=== PATIENT | female | born 1985 | race Caucasian/White ===

== ENCOUNTER 2018-11-14 07:22 | Day surgery (SDC) | payer OTHER ==
[~2018-11-14] VITALS: Ht 165.1 cm; Wt 95.3 kg
[~2018-11-14 07:22] MED LIST: CETACAINE SPRAY 5GM As Ordered ONE; EPINEPHrine 1MG/ML INJ 30ML MD-VIAL As Ordered ONE; IBUP200C25 PO; RANI150T PO
[2018-11-14] MEDS ORDERED: PROPOFOL 200 MG/20 ML VIAL As Ordered ONE (08:36)
[2018-11-14] MEDS ORDERED: LIDOCAINE 2% INJ 100 MG/5 ML SDV (FOR ANES.) As Ordered ONE (08:36)
[2018-11-14] MEDS ORDERED: MIDAZOLAM INJ 2 MG/2 ML VIAL (J2250) As Ordered ONE ×2 (08:36→09:50)
[2018-11-14] MEDS ORDERED: fentaNYL 100 MCG/2 ML INJECTION (J3010) As Ordered ONE ×2 (08:36→09:15)
[2018-11-14] MEDS ORDERED: ONDANSETRON 4MG/2ML VIAL (J2405) As Ordered ONE (08:36)
[2018-11-14] MEDS ORDERED: dexameTHASONE 4 MG/ML 1ML VIAL (J1100) As Ordered ONE ×2 (08:36→10:57)
[2018-11-14] MEDS ORDERED: ROCURONIUM BROMIDE 50 MG/5 ML VIAL As Ordered ONE (08:37)
[2018-11-14] MEDS ORDERED: SUGAMMADEX SODIUM 500 MG/5 ML VIAL (BRIDION) As Ordered ONE (09:25)
[2018-11-14] MEDS: fentaNYL 100 MCG/2 ML INJECTION (J3010) IV PRN ×4 (10:09→10:30)
[2018-11-14] MEDS ORDERED: ONDANSETRON 4MG/2ML VIAL (J2405) IV PRN (10:15)
[2018-11-14] MEDS ORDERED: LR 1,000 ML IV SCH (10:15)
[2018-11-14] MEDS ORDERED: PERCOCET 5MG/325MG TAB PO PRN (10:15)
[2018-11-14] MEDS ORDERED: HYDROcodone/APAP LIQUID 7.5-325MG 15ML UDC (LORTAB ELIXIR) PO PRN (10:15)
[2018-11-14] MEDS ORDERED: RACEPINEPHrine 2.25 % UD INHA As Ordered ONE (10:58)
[2018-11-14] MEDS ORDERED: dexameTHASONE 4 MG/ML 1ML VIAL (J1100) IV ONE (11:15)
[2018-11-14] MEDS ORDERED: RACEPINEPHrine 2.25 % UD INHA INH ONE (11:30)
[2018-11-14 11:45] VITALS: BP 155/77
--- NOTE | 2018-11-14 20:56 | RO ---
DATE OF PROCEDURE: 11/14/2018 PREPROCEDURE DIAGNOSIS: Left vocal cord lesion. POSTPROCEDURE DIAGNOSIS: Left vocal cord lesion. PROCEDURE: Microdirect laryngoscopy with biopsy of lesion of the left posterior vocal cord. SURGEON: Dr. Dov Rainey STORE DETECTIVE: ANESTHESIA: INDICATIONS: This is a 33-year-old with a history of smoking, presents with a history of some hoarseness, sore throat, and some ear pain. Office examinations including flexible laryngoscopy suggested the presence of a granular looking mass in the posterior aspect of the left vocal cord near the vocal process. She has a history of reflux, and it was thought it might have been some granulation from chronic reflux. When it failed to resolve with medical management, she was brought to the operating room. DESCRIPTION OF PROCEDURE: Satisfactory general endotracheal anesthesia administered using a small 5-1/2 endotracheal tube. A double-lighted Dedo laryngoscope was inserted in the oropharynx. Complete inspection of the upper airway was performed. No other mucosal lesions were seen. Once complete inspection of the hypopharynx and piriform fossa was done, the scope was advanced in the glottic vestibule and then suspended with the Lewey apparatus. Microscope was brought into place. Inspection of the larynx was begun. There appeared to be a smooth white mass that occupied the posterior one-fifth of the vocal cord on the left. It seemed to be emerging from the laryngeal ventricle but covered the surface of the cord posteriorly as well. Several biopsies were taken using a micro biopsy forcep cup. It was quite a vascular lesion, and once the superficial layer was biopsied, it appeared to have a much more ominous appearance with some granular tissue and keratinaceous looking white fragments were removed. It was fairly vascular. Adrenaline pledgets were placed on top of the lesion after multiple biopsies were taken. A frozen section was also done. After placing adrenaline pledgets, the bleeding subsided, the throat was suctioned, the larynx was suctioned, and the Dedo laryngoscope was removed. Tooth protectant used. Inspection of teeth showed no injury to any of the dentition or gums. She generally tolerated the procedure well, was sent to recovery in satisfactory condition. She will be seen back in the office to discuss the results later in the week.
== END 2018-11-14 11:54 | disposition home or self-care (01) ==
LOC: M SDC 07:22
PROVIDERS: ATTEND Specialist
DX: C32.9 Malignant neoplasm of larynx, unspecified (principal); K21.9 Gastro-esophageal reflux disease without esophagitis; F17.210 Nicotine dependence, cigarettes, uncomplicated; Z79.899 Other long term (current) drug therapy
CPT/HCPCS: 31536; 88305; 88331; J1100; J2250; J2405; J3010

== ENCOUNTER → 2018-12-02 | Outpatient (CLI) | payer OTHER ==
[~2018-12-02] MED LIST changes: -CETACAINE SPRAY 5GM As Ordered ONE; -EPINEPHrine 1MG/ML INJ 30ML MD-VIAL As Ordered ONE; +PERC5TAB12 PO
--- NOTE | 2018-12-05 12:49 | RADONC ---
RADIATION ONCOLOGY CONSULTATION NOTE DATE: 12/02/2018 CHART NUMBER: [id number] DIAGNOSIS: Left vocal cord. STAGE: I, T1N0M0. ECOG PERFORMANCE STATUS: Zero. CONSULTATION NOTE: Ms. 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 HISTORY OF PRESENT ILLNESS: The patient was in her usual state of health but developed some hoarseness and a sore throat. She was seen by Dr. Sheppard, and on 11/14/2018 underwent microdirect laryngoscopic with biopsy of a lesion involving her left posterior vocal cord. Pathology revealed a well-differentiated invasive keratinizing squamous cell carcinoma. The patient has done well since his surgery is now presenting for consideration of definitive external beam radiation therapy. PAST MEDICAL HISTORY: The patient's past medical history is noncontributory. She has been in generally good health. ALLERGIES: The patient reports is allergic to IODINE. SOCIAL HISTORY: The patient smokes half-a-pack of cigarettes per day for the last 6 years. She drinks alcohol socially. FAMILY HISTORY: The patient's family history is positive for a paternal great aunt with thyroid cancer and a maternal grandmother with lung cancer. REVIEW OF SYSTEMS: The patient's review of systems is positive for she claims is significant throat pain. She reports headaches, decreased energy, occasional fevers and chills, shortness of breath, anorexia, weight loss, difficulty swallowing. She denies nausea, vomiting, chest pain, urinary or bowel difficulties, bone pain or neurological problems. PHYSICAL EXAMINATION: The patient is a well-developed, well-nourished white female, in no acute distress. HEENT: Exam is normocephalic, atraumatic. Extraocular movements are intact. Oral cavity examination reveals no evidence of lesions, nodularity or ulceration. Fiberoptic laryngoscopic evaluation was deferred. We will refer to the work of Dr. Rainey. Her lungs are clear to auscultation and percussion. Heart has regular rate and rhythm. Her abdomen is benign with no splenomegaly, masses or tenderness. ASSESSMENT: The patient is presenting to us today with what appears to be a stage I, T1N0M0, left true vocal cord lesion. Clearly the patient is a candidate for external beam radiation therapy and I have so informed her. I have discussed with the patient in detail the potential benefits as well as possible acute and chronic sequelae of external beam radiation therapy. We discussed logistics of treatment planning, simulation subsequent fractionated daily radiation treatments. I am scheduling the patient for simulation and initiation of treatment planning. The patient was complaining of vocal cord discomfort and was asking for narcotics. I do not believe we would be helping this young woman by initiating a protracted course of narcotics therapy for a small vocal cord lesion. I did let her know that she may develop more discomfort upon swallowing once therapy is initiated and we can readdress things at that time. To start her on several months of continuous narcotics for this I believe would be doing her a disfavor. Of note, the lesion measured only 4 mm on the surface of the posterior left vocal cord. cc: MD DEIDRA Giles
== END ==
LOC: M ONCR 08:50
PROVIDERS: ATTEND Radiology Radiation Oncology
DX: C32.9 Malignant neoplasm of larynx, unspecified (principal); R53.83 Other fatigue; R63.4 Abnormal weight loss; R63.0 Anorexia; R51 Headache; Z80.7 Family history of other malignant neoplasms of lymphoid, hematopoietic and related tissues; Z80.1 Family history of malignant neoplasm of trachea, bronchus and lung

== ENCOUNTER → 2019-01-10 | Outpatient (RCR) | payer OTHER ==
--- NOTE | 2018-12-19 11:31 | RADONC ---
RADIATION ONCOLOGY PROGRESS NOTE DATE OF SERVICE: 12/19/2018 CHART NUMBER: [id number]. PROGRESS NOTE: Ms. Whitney was taken to the linear accelerator today and underwent her first fraction of radiation to her larynx. She tolerated the fraction of radiation without difficulty. REVIEW OF SYSTEMS: The patient's review of systems continues to be positive for her discomfort, as well as some hoarseness but is otherwise noncontributory. She denies nausea, vomiting, fevers, chills, night sweats, diplopia, headaches, anxiety or depression, anorexia, weight loss, visual disturbances, chest pain, urinary or bowel difficulties, bone pain, or neurological problems. PHYSICAL EXAMINATION: The patient's skin clearly showed no evidence of radiation change present as this was her first fraction of treatment. Her physical exam otherwise remained unchanged. Ms. Whitney tolerated treatments without difficulty, and radiation will continue as scheduled.
--- NOTE | 2018-12-26 13:55 | RADONC ---
RADIATION ONCOLOGY PROGRESS NOTE DATE OF SERVICE: 12/26/2018 CHART NUMBER: [id number] Mrs. Whitney, with a diagnosis of stage T1N0M0 squamous cell carcinoma involving the left true vocal cord is currently receiving local regional radiotherapy. Her dose to date is 1125 cGy of an anticipated 6300 cGy. She is tolerating her radiotherapy reasonably well. REVIEW OF SYSTEMS: She specifically denies any nausea, vomiting, coughing, sputum production or hemoptysis. She does have dysphagia and odynophagia and the pain radiates back into her left-sided jaw area / preauricular area. She did have some increased FDG activity in the left neck, but a PET scan showed that most likely these nodes which did uptake FDG are most likely inflammatory. She is fatigued slightly. Her energy level is such that she can maintain many day-to-day activities, but she still gets tired at the end of the day. EXAMINATION FINDINGS: Skin within the irradiated volume shows no evidence of erythema. No palpable peripheral lymphadenopathy is appreciated. Examination of the oropharynx reveals no significant abnormalities. The remainder of the physical examination is unchanged. IMPRESSION: Tolerating therapy reasonably well with anticipated dysphagia and a minimal odynophagia. PLAN: Treatments to continue. MTDD
--- NOTE | 2019-01-04 13:54 | RADONC ---
RADIATION ONCOLOGY PROGRESS NOTE DATE: 01/03/2019 CHART #: [id number] Ms. Whitney is presently at a dose of 2475 cGy to her vocal cord and is tolerating treatments without significant difficulties. She continues to complain of pain. At this time, we could refer her to the pain clinic. I do not feel comfortable giving her more pain medication. In the meantime, on physical exam her skin is in good condition with no evidence of moist or dry desquamation. The remainder of physical exam remains unchanged. Radiation will continue as scheduled.
[~2019-01-10] MED LIST changes: +PERC10TA26 PO
--- NOTE | 2019-01-11 08:10 | RADONC ---
RADIATION ONCOLOGY PROGRESS NOTE DATE: 01/09/2019 CHART NUMBER: [id number] Ms. Whitney is presently at a dose of 3375 cGy to her larynx and is in tears and complaining of pain. I checked I-STOP, and the patient did get a 6-day supply of pain medication on 01/04/[address] Daniels. She he had been getting pain medication as well from multiple physicians in November. I had refused to give her pain medication considering her small laryngeal lesion when she came in for consultation. Now, however, she is getting radiation reaction, and I do believe she is in a great deal of discomfort. I have therefore sent in a prescription for Percocet, which should alleviate some of her discomfort. The remainder of the patient's review of systems is noncontributory. Her big and only complaint at this time is pain and pain upon swallowing. She also is concerned about the slight pinkening of her skin. PHYSICAL EXAMINATION: The patient's skin actually is in very good condition with just some slight erythema present. The remainder of her physical exam remains unchanged. Ms. Whtiney is tolerating her treatments with pain. I have given her prescription for pain medication. Radiation will continue as scheduled. She is also continuing with her Viscous Xylocaine as well.
== END ==
LOC: M ONCR 12-15 11:19
PROVIDERS: ATTEND Radiology Radiation Oncology
DX: C32.0 Malignant neoplasm of glottis (principal)

== ENCOUNTER 2019-01-30 10:58 | Outpatient (RCR) | payer OTHER ==
--- NOTE | 2019-01-16 12:50 | RADONC ---
RADIATION ONCOLOGY PROGRESS NOTE DATE: 01/16/2019 CHART NUMBER: [id number] PROGRESS NOTE: Ms. Whitney is presently at a dose of 4275 cGy to her vocal cord and is tolerating treatments quite well at this point with no complaints related to her radiation therapy. She is having no pain at this time but is taking her Percocet. She has no other complaints. REVIEW OF SYSTEMS: The patient's review of systems is noncontributory. Denies nausea, vomiting, fevers, chills, night sweats, diplopia, headaches, anxiety or depression, anorexia, weight loss, visual disturbances, chest pain, urinary or bowel difficulties, bone pain, or neurological problems. PHYSICAL EXAMINATION: The patient's skin is in excellent condition with no evidence of radiation change present. There is no moist or dry desquamation. The remainder of her physical exam remains unchanged. Ms. Whitney is tolerating treatments quite well and radiation will continue as scheduled.
--- NOTE | 2019-01-23 14:53 | RADONC ---
RADIATION ONCOLOGY PROGRESS NOTE DATE: 01/23/2019 CHART NUMBER: [id number] Mrs. Whitney, with a diagnosis of carcinoma of the left vocal cord stage I, is currently receiving local regional radiotherapy for definitive control. She is at a dose of 5175 cGy of an anticipated 6300 cGy. She complains of the anticipated odynophagia and dysphagia, but generally is tolerating radiotherapy fairly well. REVIEW OF SYSTEMS She denies any nausea, vomiting, coughing, sputum production or hemoptysis. She does complain of odynophagia secondary to the radiation and claims that she has lost a minimal amount of weight from this side effect. She has been on oxycodone and Tylenol, which causes her to have a significant amount of nausea and does not actually control of pain. She also has been taking ibuprofen, which seems to work the best for her. The remainder of the review of systems is noncontributory. EXAMINATION FINDINGS: The skin within the irradiated volume shows erythema without evidence of desquamation. Lymphatics: No palpable peripheral lymphadenopathy. The remainder of the physical examination is unchanged. IMPRESSION: The patient appears to be tolerating therapy reasonably well with the exception of an anticipated dysphagia. PLAN: She has enough pain medicine for her dysphagia, however, she has requested something for nausea control, and I have E-scripted a prescription for some ondansetron 8 mg three times a day oral dissolving tablets. PLAN: Treatments will continue. MTDD
[~2019-01-30 10:58] MED LIST changes: +ONDA8TAB8 PO
--- NOTE | 2019-01-30 12:31 | RADONC ---
RADIATION ONCOLOGY TREATMENT SUMMARY: DATE: 01/30/2019 CHART NUMBER: [id number] DIAGNOSIS: Left vocal cord STAGE: I, T1N0M0 ECOG PERFORMANCE STATUS: 0 Ms. Whitney is a 33-year-old white female with the diagnosis of a stage I, T1,N0M0 well-differentiated invasive keratinizing squamous cell carcinoma of left vocal cord who presented to us for consideration of definitive external beam radiation therapy. We treated the patient to her left vocal cord for a total dose of 6300 cGy delivered in 28 fractions of 225 cGy each over 42 elapsed days from 02/18/2019 through 01/30/2019. The patient's vocal cord was treated on the linear accelerator utilizing a 6 MV photon beam via 3D conformal technique with oblique gutierrez. Ms. Whitney tolerated her treatments quite well and was able complete therapy as prescribed without interruption. I have scheduled the patient to see me again in 1 month for further followup. She will also continue to be followed by her other physicians as well. Thank you for allowing us to participate in the care of this very pleasant woman. If I could be of any further assistance or provide you with any information, please feel free to contact me anytime. As always warm regards, cc: Dov Rainey MD
[2019-02-07] MEDS ORDERED: PERC10TA26 PO (11:13)
--- NOTE | 2019-02-07 12:37 | RADONC ---
RADIATION ONCOLOGY PROGRESS NOTE DATE: 02/07/2019 CHART NUMBER: [id number] Ms. Whitney called us today complaining of severe pain. She has run out of the Percocet prescription that she filled on 01/09/2019. I had a discussion with the patient and let her know that since she just finished radiation is continuing to have the side effects and pain from the treatments, I am willing to write her another prescription to get her through the acute inflammation and discomfort. I have therefore sent in a prescription for Percocet once again, and we have scheduled her to see us in followup in approximately 3 weeks from now. Following this, her pain control issues will be referred back to her primary care physician. I-STOP was checked.
[2019-02-09] MEDS ORDERED: ZYRTTAB8 PO (11:34)
[2019-02-09] MEDS ORDERED: ONDA8TAB8 PO (11:49)
[2019-02-09] MEDS ORDERED: PERC10TA26 PO (11:49)
[2019-02-09] MEDS ORDERED: ROLA1CHW PO (11:49)
[2019-02-09] MEDS ORDERED: IBUP200T45 PO (11:49)
== END 2019-02-10 ==
LOC: M ONCR 10:58
PROVIDERS: ATTEND Radiology Radiation Oncology
DX: C32.0 Malignant neoplasm of glottis (principal)

== ENCOUNTER 2019-02-09 11:18 | Inpatient (IN) | payer OTHER ==
[~2019-02-09] VITALS: Ht 165.1 cm; Wt 90.5 kg
[2019-02-09] MEDS ORDERED: dexameTHASONE 20 MG/5 ML VIAL (J1100) IV ONE (11:30)
[2019-02-09] MEDS ORDERED: ZYRTTAB8 PO (11:34)
[2019-02-09] MEDS ORDERED: LIDOCAINE 2% INJ 100 MG/5 ML SDV (FOR ANES.) ONE (11:41)
[2019-02-09] MEDS ORDERED: NS 1,000 ML IV SCH (11:45)
[2019-02-09 11:46] LABS: BASO % 0.1 % (0.0-1.0); EOS % 0.1 % (0.0-3.0); HEMATOCRIT 41.8 % (36.0-47.0); HEMOGLOBIN 13.2 g/dl (12.0-15.5); LYMPH # 0.3 10^3/uL (1.5-4.5); LYMPH % 2.1 % (24.0-44.0); MEAN CORPUSCULAR HEMOGLOBIN 27.4 pg (27.0-33.0); MEAN CORPUSCULAR HGB CONC 31.6 g/dl (32.0-36.5); MEAN CORPUSCULAR VOLUME 86.7 fl (80.0-96.0); MONO # 0.1 10^3/uL (0.0-0.8); MONO % 0.4 % (0.0-5.0); NEUTROPHILS # 13.1 10^3/uL (1.8-7.7); NEUTROPHILS % 96.9 % (36.0-66.0); PLATELET COUNT, AUTOMATED 394 10^3/uL (150-450); RED BLOOD COUNT 4.82 10^6/uL (4.00-5.40); WHITE BLOOD COUNT 13.6 10^3/uL (4.0-10.0)
[2019-02-09] MEDS ORDERED: IBUP200T45 PO (11:49)
[2019-02-09] MEDS ORDERED: ROLA1CHW PO (11:49)
[2019-02-09] MEDS ORDERED: ONDA8TAB8 PO (11:49)
[2019-02-09] MEDS ORDERED: LIDOCAINE W/EPINEPHRINE 1% 20ML VIAL As Ordered ONE ×2 (11:49→12:33)
[2019-02-09] MEDS ORDERED: PERC10TA26 PO (11:49)
[2019-02-09 11:58] LABS: INR 0.99; PROTHROMBIN TIME 13.2 SECONDS (12.1-14.4)
[2019-02-09] MEDS ORDERED: RACEPINEPHrine 2.25 % UD INHA As Ordered ONE (11:58)
[2019-02-09 12:13] LABS: ALBUMIN 4.1 GM/DL (3.2-5.2); ALT/SGPT 28 U/L (12-78); BILIRUBIN,TOTAL 0.4 MG/DL (0.2-1.0); BLOOD UREA NITROGEN 14 MG/DL (7-18); CALCIUM LEVEL 9.5 MG/DL (8.5-10.1); CARBON DIOXIDE LEVEL 27 MEQ/L (21-32); CHLORIDE LEVEL 105 MEQ/L (98-107); CREATININE FOR GFR 0.55 MG/DL (0.55-1.30); GLOMERULAR FILTRATION RATE > 60.0 (>60); GLUCOSE, FASTING 122 MG/DL (70-100); SODIUM LEVEL 139 MEQ/L (136-145); TOTAL PROTEIN 6.9 GM/DL (6.4-8.2)
[2019-02-09] MEDS ORDERED: ceFAZolin 2 GM/D5W 50 ML IV BAG (J0690 PER 500MG) As Ordered ONE (12:14)
[2019-02-09] MEDS ORDERED: KETAMINE HCL 200 MG/20 ML VIAL As Ordered ONE (12:15)
[2019-02-09] MEDS ORDERED: MIDAZOLAM INJ 2 MG/2 ML VIAL (J2250) As Ordered ONE ×2 (12:16→13:52)
[2019-02-09] MEDS ORDERED: fentaNYL 100 MCG/2 ML INJECTION (J3010) As Ordered ONE ×2 (12:16→13:00)
--- NOTE | 2019-02-09 14:06 | CR.PDOC ---
General Date of Consultation: February 09, 2019 Referring Provider: PATRICK HUGHES MD Consultation REASON FOR CONSULTATION/CHIEF COMPLAINT: management of medical issues HISTORY OF PRESENT ILLNESS: 33 yo female with history of laryngeal cancer s/p radiation therapy, admitted to ICU today for observation s/p tracheostomy. ALLERGIES: Please see below. HOME MEDICATIONS: Please see below. PAST MEDICAL HISTORY: 1. Laryngeal cancer REVIEW OF SYSTEMS: Negative except as per HPI. PHYSICAL EXAMINATION: VITAL SIGNS: Please see below. GENERAL APPEARANCE: NAD, lying comfortably in bed HEENT: NC/AT, EOMI, PERRL, trach in place, area is C/D/I RESPIRATORY: grossly CTA, some upper airway sounds CARDIOVASCULAR: +S1S2, RRR ABDOMEN: soft, NT, +BS EXTREMITIES: no edema LABORATORY DATA: Please see below. ASSESSMENT/PLAN: 33 yo female status post tracheostomy with PMHx laryngeal cancer s/p RT: #s/p tracheostomy - follow as per primary - ENT #laryngeal cancer - continue o/p follow up #DVT prophylaxis - as per primary team - could utilize mechanical prophylaxis Vital Signs/I&O Vital Signs Date Time Temp Pulse Resp B/P (MAP) Pulse Ox O2 Delivery O2 Flow Rate FiO2 02/09/19 12:10 93 20 157/65 (95) 96 60 02/09/19 12:01 Tent/Vu 10.0 02/09/19 11:19 96.0 Laboratory Data Labs 24H Laboratory Tests 2 02/09/19 11:32: Immature Granulocyte % (Auto) 0.4, White Blood Count 13.6H, Red Blood Count 4.82 , Hemoglobin 13.2, Hematocrit 41.8, Mean Corpuscular Volume 86.7, Mean Corpuscular Hemoglobin 27.4, Mean Corpuscular Hemoglobin Concent 31.6L, Red Cell Distribution Width 13.6, Platelet Count 394, Neutrophils (%) (Auto) 96.9H, Lymphocytes (%) (Auto) 2.1L, Monocytes (%) (Auto) 0.4, Eosinophils (%) (Auto) 0.1, Basophils (%) (Auto) 0.1, Neutrophils # (Auto) 13.1H, Lymphocytes # (Auto) 0.3L, Monocytes # (Auto) 0.1, Eosinophils # (Auto) 0.0, Basophils # (Auto) 0.0, Nucleated Red Blood Cells % (auto) 0.0, Prothrombin Time 13.2, Prothromb Time International Ratio 0.99, Anion Gap 7L, Glomerular Filtration Rate > 60.0, Blood Urea Nitrogen 14, Creatinine 0.55, Sodium Level 139, Potassium Level 4.0, Ch loride Level 105, Carbon Dioxide Level 27, Calcium Level 9.5, Aspartate Amino Transf (AST/SGOT) 13, Alanine Aminotransferase (ALT/SGPT) 28, Alkaline Phosphatase 85, Total Bilirubin 0.4, Total Protein 6.9, Albumin 4.1, Albumin/Globulin Ratio 1.46 CBC/BMP Laboratory Tests 02/09/19 11:32 Red Blood Count 4.82, Mean Corpuscular Volume 86.7, Mean Corpuscular Hemoglobin 27.4, Mean Corpuscular Hemoglobin Concent 31.6 L, Red Cell Distribution Width 13.6, Neutrophils (%) (Auto) 96.9 H, Lymphocytes (%) (Auto) 2.1 L, Monocytes (%) (Auto) 0.4, Eosinophils (%) (Auto) 0.1, Basophils (%) (Auto) 0.1, Neutrophils # (Auto) 13.1 H, Lymphocytes # (Auto) 0.3 L, Monocytes # (Auto) 0.1, Eosinophils # (Auto) 0.0, Basophils # (Auto) 0.0, Calcium Level 9.5, Aspartate Amino Transf (AST/SGOT) 13, Alanine Aminotransferase (ALT/SGPT) 28, Alkaline Phosphatase 85, Total Bilirubin 0.4, Total Protein 6.9, Albumin 4.1 Allergies Coded Allergies: iodine (Verified Allergy, Severe, Anaphylaxis, 12/16/18) shellfish derived (Verified Allergy, Severe, anaphlaxis, 02/09/19) Home Medications Scheduled Cetirizine HCl/Pseudoephedrine (Zyrtec-D Tablet) 1 Each Tab.er.12h, 1 TAB PO DAILY, (Reported) Scheduled PRN Calcium Carb/Magnesium Hydrox (Rolaids Chewable Tablet) 1 Each Tab.chew, 1 CHW PO for HEARTBURN, (Reported) Ibuprofen (Ibu-200) 200 Mg Tablet, 200 MG PO Q6H PRN for PAIN, (Reported) Ondansetron (Ondansetron Odt) 8 Mg Tab.rapdis, 8 MG PO TID PRN for NAUSEA OR VOMITING, (Reported) Oxycodone HCl/Acetaminophen (Percocet 10-325 mg Tablet) 1 Each Tablet, 1 TAB PO Q6H PRN for PAIN, (Reported) SADIE LOGAN MD February 09, 2019 14:06
[2019-02-09] MEDS ORDERED: fentaNYL 100 MCG/2 ML INJECTION (J3010) IV PRN (14:15)
[2019-02-09] MEDS ORDERED: MIDAZOLAM INJ 2 MG/2 ML VIAL (J2250) IV SCH (14:15)
[2019-02-09] MEDS ORDERED: LR 1,000 ML IV SCH (14:15)
[2019-02-09] MEDS ORDERED: ONDANSETRON 4MG/2ML VIAL (J2405) IV PRN (14:15)
[2019-02-09] MEDS ORDERED: HYDROMORPHONE HCL 0.5 MG/ 0.5 ML SYRINGE (J1170 PER 1) As Ordered ONE ×2 (14:28→15:35)
[2019-02-09] MEDS: HYDROMORPHONE HCL 0.5 MG/ 0.5 ML SYRINGE (J1170 PER 1) IV PRN ×2 (14:31→15:40)
[2019-02-09] MEDS ORDERED: MORPHINE 4 MG/ML 1ML VIAL/SYRINGE (J2270) IM PRN (14:45)
[2019-02-09] MEDS ORDERED: RACEPINEPHrine 2.25 % UD INHA INH ONE (14:45)
[2019-02-09 16:00] VITALS: BP 140/88
[2019-02-09] MEDS: MORPHINE 4 MG/ML 1ML VIAL/SYRINGE (J2270) IV PRN (16:50)
[2019-02-09 17:00] VITALS: BP 147/79
[2019-02-09 18:00] VITALS: BP 140/88; O2SAT 99
[2019-02-09] MEDS: HYDROcodone/APAP LIQUID 7.5-325MG 15ML UDC (LORTAB ELIXIR) PO PRN ×2 (18:09→22:04)
[2019-02-09 19:00] VITALS: O2SAT 98
[2019-02-09 20:00] VITALS: BP 143/83; O2SAT 98
[2019-02-09] MEDS: ceFAZolin SOD 1 GM in D5W MINI-BAG PLUS 50 ML IV SCH (20:51)
[2019-02-10] VITALS (18 sets, daily range): BP systolic 120–140; BP diastolic 58–78; O2SAT 89–99
[2019-02-10] MEDS: HYDROcodone/APAP LIQUID 7.5-325MG 15ML UDC (LORTAB ELIXIR) PO PRN ×5 (03:38→23:28)
[2019-02-10] MEDS: ceFAZolin SOD 1 GM in D5W MINI-BAG PLUS 50 ML IV SCH ×3 (05:55→20:00)
[2019-02-10 08:09] LABS: BASO % 0.1 % (0.0-1.0); HEMATOCRIT 41.5 % (36.0-47.0); HEMOGLOBIN 13.1 g/dl (12.0-15.5); LYMPH % 5.2 % (24.0-44.0); MEAN CORPUSCULAR HEMOGLOBIN 28.2 pg (27.0-33.0); MEAN CORPUSCULAR HGB CONC 31.6 g/dl (32.0-36.5); MEAN CORPUSCULAR VOLUME 89.2 fl (80.0-96.0); MONO # 1.4 10^3/uL (0.0-0.8); MONO % 6.9 % (0.0-5.0); NEUTROPHILS % 87.2 % (36.0-66.0); PLATELET COUNT, AUTOMATED 388 10^3/uL (150-450); RED BLOOD COUNT 4.65 10^6/uL (4.00-5.40); WHITE BLOOD COUNT 19.5 10^3/uL (4.0-10.0)
[2019-02-10 08:16] LABS: ALBUMIN 3.5 GM/DL (3.2-5.2); ALT/SGPT 22 U/L (12-78); BILIRUBIN,TOTAL 0.4 MG/DL (0.2-1.0); BLOOD UREA NITROGEN 13 MG/DL (7-18); CALCIUM LEVEL 9.7 MG/DL (8.5-10.1); CARBON DIOXIDE LEVEL 29 MEQ/L (21-32); CHLORIDE LEVEL 103 MEQ/L (98-107); CREATININE FOR GFR 0.66 MG/DL (0.55-1.30); GLOMERULAR FILTRATION RATE > 60.0 (>60); GLUCOSE, FASTING 96 MG/DL (70-100); POTASSIUM SERUM 4.2 MEQ/L (3.5-5.1); SODIUM LEVEL 138 MEQ/L (136-145); TOTAL PROTEIN 6.5 GM/DL (6.4-8.2)
--- NOTE | 2019-02-10 09:14 | IPNPDOC ---
Text Note Date of Service The patient was seen on 02/10/19. NOTE Subjective: patient seen and examined at bedside. No acute overnight events reported. Patient has no new medical complaints. Still notes some pain at her tracheostomy. Objective: VITAL SIGNS: Please see below. GENERAL APPEARANCE: NAD, lying comfortably in bed HEENT: NC/AT, EOMI, PERRL, trach in place, area is C/D/I RESPIRATORY: grossly CTA, some upper airway sounds CARDIOVASCULAR: +S1S2, RRR ABDOMEN: soft, NT, +BS EXTREMITIES: no edema LABORATORY DATA: Please see below. ASSESSMENT/PLAN: 33 yo female status post tracheostomy with PMHx laryngeal cancer s/p RT: #s/p tracheostomy - POD #1 - follow as per primary - ENT #laryngeal cancer - continue o/p follow up as directed #DVT prophylaxis - receiving mechanical prophylaxis VS,Fishbone, I+O VS, Fishbone, I+O Laboratory Tests 02/09/19 11:32 Red Blood Count 4.82, Mean Corpuscular Volume 86.7, Mean Corpuscular Hemoglobin 27.4, Mean Corpuscular Hemoglobin Concent 31.6 L, Red Cell Distribution Width 13.6, Neutrophils (%) (Auto) 96.9 H, Lymphocytes (%) (Auto) 2.1 L, Monocytes (%) (Auto) 0.4, Eosinophils (%) (Auto) 0.1, Basophils (%) (Auto) 0.1, Neutrophils # (Auto) 13.1 H, Lymphocytes # (Auto) 0.3 L, Monocytes # (Auto) 0.1, Eosinophils # (Auto) 0.0, Basophils # (Auto) 0.0, Calcium Level 9.5, Aspartate Amino Transf (AST/SGOT) 13, Alanine Aminotransferase (ALT/SGPT) 28, Alkaline Phosphatase 85, Total Bilirubin 0.4, Total Protein 6.9, Albumin 4.1 02/10/19 07:37 Red Blood Count 4.65, Mean Corpuscular Volume 89.2, Mean Corpuscular Hemoglobin 28.2, Mean Corpuscular Hemoglobin Concent 31.6 L, Red Cell Distribution Width 13.8, Neutrophils (%) (Auto) 87.2 H, Lymphocytes (%) (Auto) 5.2 L, Monocytes (%) (Auto) 6.9 H, Eosinophils (%) (Auto) 0.0, Basophils (%) (Auto) 0.1, Neutrophils # (Auto) 17.0 H, Lymphocytes # (Auto) 1.0 L, Monocytes # (Auto) 1.4 H, Eosinophils # (Auto) 0.0, Basophils # (Auto) 0.0, Calcium Level 9.7, Aspartate Amino Transf (AST/SGOT) 6 L, Alanine Aminotransferase (ALT/SGPT) 22, Alkaline Phosphatase 79, Total Bilirubin 0.4, Total Protein 6.5, Albumin 3.5 Vital Signs Date Time Temp Pulse Resp B/P (MAP) Pulse Ox O2 Delivery O2 Flow Rate FiO2 02/10/19 08:13 18 02/10/19 08:00 97.3 92 123/70 (87) 98 40 02/10/19 04:00 10.0 02/09/19 20:00 Trach Collar I&O- Last 24 Hours up to 6 AM 02/10/19 06:00 Intake Total 1370 ml Output Total 1150 ml Balance 220 ml SADIE LOGAN MD February 10, 2019 09:13
--- NOTE | 2019-02-10 09:46 | IPNPDOC ---
Text Note Date of Service The patient was seen on 02/10/19. NOTE POD 1 from Tracheotomy VSS She is breathing better. Usual messy wound issues with new trach. Cuff is deflated and will order Passi-Fili valve for speaking Can begin to switch to po abx, DC IV and ambulate today Home care instruction should begin Thanks to medical team for assistance VS,Fishbone, I+O VS, Fishbone, I+O Laboratory Tests 02/09/19 11:32 Red Blood Count 4.82, Mean Corpuscular Volume 86.7, Mean Corpuscular Hemoglobin 27.4, Mean Corpuscular Hemoglobin Concent 31.6 L, Red Cell Distribution Width 13.6, Neutrophils (%) (Auto) 96.9 H, Lymphocytes (%) (Auto) 2.1 L, Monocytes (%) (Auto) 0.4, Eosinophils (%) (Auto) 0.1, Basophils (%) (Auto) 0.1, Neutrophils # (Auto) 13.1 H, Lymphocytes # (Auto) 0.3 L, Monocytes # (Auto) 0.1, Eosinophils # (Auto) 0.0, Basophils # (Auto) 0.0, Calcium Level 9.5, Aspartate Amino Transf (AST/SGOT) 13, Alanine Aminotransferase (ALT/SGPT) 28, Alkaline Phosphatase 85, Total Bilirubin 0.4, Total Protein 6.9, Albumin 4.1 02/10/19 07:37 Red Blood Count 4.65, Mean Corpuscular Volume 89.2, Mean Corpuscular Hemoglobin 28.2, Mean Corpuscular Hemoglobin Concent 31.6 L, Red Cell Distribution Width 13.8, Neutrophils (%) (Auto) 87.2 H, Lymphocytes (%) (Auto) 5.2 L, Monocytes (%) (Auto) 6.9 H, Eosinophils (%) (Auto) 0.0, Basophils (%) (Auto) 0.1, Neutrophils # (Auto) 17.0 H, Lymphocytes # (Auto) 1.0 L, Monocytes # (Auto) 1.4 H, Eosinophils # (Auto) 0.0, Basophils # (Auto) 0.0, Calcium Level 9.7, Aspartate Amino Transf (AST/SGOT) 6 L, Alanine Aminotransferase (ALT/SGPT) 22, Alkaline Phosphatase 79, Total Bilirubin 0.4, Total Protein 6.5, Albumin 3.5 Vital Signs Date Time Temp Pulse Resp B/P (MAP) Pulse Ox O2 Delivery O2 Flow Rate FiO2 02/10/19 08:13 18 02/10/19 08:00 97.3 92 123/70 (87) 98 40 02/10/19 04:00 10.0 02/09/19 20:00 Trach Collar I&O- Last 24 Hours up to 6 AM 02/10/19 06:00 Intake Total 1370 ml Output Total 1150 ml Balance 220 ml PATRICK HUGHES MD February 10, 2019 09:46
[2019-02-10] MEDS: MORPHINE 4 MG/ML 1ML VIAL/SYRINGE (J2270) IV PRN ×2 (09:49→20:00)
[2019-02-10] MEDS ORDERED: SLF 3 ML SYR IV PRN (13:45)
[2019-02-10] MEDS: SLF 3 ML SYR IV SCH ×2 (14:17→22:03)
--- NOTE | 2019-02-10 16:39 | ECGEPIP ---
[facility] Test Date: 2019-02-10 Pat Name: TOMY RASHEED Department: Room: [place] [address] Gender: Female Junior Business Analyst: : 1985 Requested By: SADIE Silverman Order Number: [id number] Reading MD: Kendrick Hollis Measurements Intervals [place] Rate: 83 P: 23 GA: 152 QRS: 28 QRSD: 89 T: 23 QT: 378 QTc: 446 Interpretive Statements SINUS RHYTHM Within normal limits. No prior ECG available for comparison at the time of interpretation. Electronically Signed on 02-10-2019 16:39:03 EDT by Kendrick Hollis
[2019-02-10 17:29] LABS: CK-MB VALUE MASS < 1.0 NG/ML (<3.6); CPK CREATINE PHOSPHOKINASE 38 U/L (26-192); MB/CK RELATIVE INDEX 2.63 (< OR =4); TROPONIN I < 0.02 NG/ML (< 0.10)
[2019-02-10] MEDS: FAMOTIDINE IV BAG 20 MG in APPROPRIATE DILUENT 1 EA IV SCH (17:52)
[2019-02-11] VITALS (24 sets, daily range): BP systolic 114–133; BP diastolic 55–86; O2SAT 92–98
[2019-02-11] MEDS: MORPHINE 4 MG/ML 1ML VIAL/SYRINGE (J2270) IV PRN ×4 (01:16→22:05)
[2019-02-11] MEDS: HYDROcodone/APAP LIQUID 7.5-325MG 15ML UDC (LORTAB ELIXIR) PO PRN ×4 (03:22→19:27)
[2019-02-11 04:49] LABS: HEMATOCRIT 39.8 % (36.0-47.0); HEMOGLOBIN 12.4 g/dl (12.0-15.5); MEAN CORPUSCULAR HEMOGLOBIN 27.9 pg (27.0-33.0); MEAN CORPUSCULAR HGB CONC 31.2 g/dl (32.0-36.5); MEAN CORPUSCULAR VOLUME 89.6 fl (80.0-96.0); PLATELET COUNT, AUTOMATED 318 10^3/uL (150-450); RED BLOOD COUNT 4.44 10^6/uL (4.00-5.40); WHITE BLOOD COUNT 11.2 10^3/uL (4.0-10.0)
[2019-02-11] MEDS: ceFAZolin SOD 1 GM in D5W MINI-BAG PLUS 50 ML IV SCH ×3 (04:59→20:35)
[2019-02-11 05:10] LABS: BLOOD UREA NITROGEN 14 MG/DL (7-18); CALCIUM LEVEL 8.7 MG/DL (8.5-10.1); CARBON DIOXIDE LEVEL 29 MEQ/L (21-32); CHLORIDE LEVEL 105 MEQ/L (98-107); CREATININE FOR GFR 0.62 MG/DL (0.55-1.30); GLOMERULAR FILTRATION RATE > 60.0 (>60); GLUCOSE, FASTING 102 MG/DL (70-100); POTASSIUM SERUM 3.8 MEQ/L (3.5-5.1); SODIUM LEVEL 141 MEQ/L (136-145)
[2019-02-11] MEDS: SLF 3 ML SYR IV SCH ×3 (05:25→20:36)
[2019-02-11] MEDS: FAMOTIDINE IV BAG 20 MG in APPROPRIATE DILUENT 1 EA IV SCH ×2 (05:46→18:57)
[2019-02-11] MEDS ORDERED: SUCCINYLCHOLINE 100 MG/5 ML SYRINGE (J0330) As Ordered ONE (13:27)
[2019-02-11] MEDS ORDERED: ROCURONIUM BROMIDE 50 MG/5 ML VIAL As Ordered ONE (13:27)
[2019-02-11] MEDS ORDERED: LIDOCAINE 2% INJ 100 MG/5 ML SDV (FOR ANES.) As Ordered ONE (13:27)
[2019-02-11] MEDS ORDERED: ONDANSETRON 4MG/2ML VIAL (J2405) As Ordered ONE (13:27)
[2019-02-11] MEDS ORDERED: PROPOFOL 200 MG/20 ML VIAL As Ordered ONE (13:27)
[2019-02-12] VITALS (23 sets, daily range): BP systolic 115–138; BP diastolic 65–81; O2SAT 92–98
[2019-02-12] MEDS: HYDROcodone/APAP LIQUID 7.5-325MG 15ML UDC (LORTAB ELIXIR) PO PRN ×4 (02:33→21:26)
[2019-02-12] MEDS: ceFAZolin SOD 1 GM in D5W MINI-BAG PLUS 50 ML IV SCH ×3 (04:44→21:25)
[2019-02-12] MEDS: SLF 3 ML SYR IV SCH ×3 (04:45→21:25)
[2019-02-12] MEDS: FAMOTIDINE IV BAG 20 MG in APPROPRIATE DILUENT 1 EA IV SCH ×2 (05:40→17:11)
[2019-02-12] MEDS: MORPHINE 4 MG/ML 1ML VIAL/SYRINGE (J2270) IV PRN ×3 (05:41→18:41)
--- NOTE | 2019-02-12 08:51 | IPNPDOC ---
Text Note Date of Service The patient was seen on 02/12/19. NOTE Subjective: Patient seen and examined at bedside. No acute overnight events reported. Patient complains of continued pain at her trach site, and coughing. Secretions have improved, with minimal blood noted. Objective: VITAL SIGNS: Please see below. GENERAL APPEARANCE: NAD, lying comfortably in bed HEENT: NC/AT, EOMI, PERRL, trach in place, area is C/D/I RESPIRATORY: grossly CTA, some coarse upper airway sounds CARDIOVASCULAR: +S1S2, RRR ABDOMEN: soft, NT, +BS EXTREMITIES: no edema LABORATORY DATA: Please see below. ASSESSMENT/PLAN: 33 yo female status post tracheostomy with PMHx laryngeal cancer s/p RT: #s/p tracheostomy - POD #3 - follow as per primary - ENT - pain appears to be uncontrolled - to d/w ENT regarding pain control #leukocytosis - likely reactive - repeat CBC tomorrow - no gross signs/symptoms of infections #laryngeal cancer - continue o/p follow up as directed #DVT prophylaxis - receiving mechanical prophylaxis VS,Fishbone, I+O VS, Fishbone, I+O Vital Signs Date Time Temp Pulse Resp B/P (MAP) Pulse Ox O2 Delivery O2 Flow Rate FiO2 02/12/19 08:24 16 02/12/19 08:00 97.3 96 125/67 (86) 96 40.0 02/12/19 04:00 40 02/12/19 03:00 Trach Collar I&O- Last 24 Hours up to 6 AM 02/12/19 06:00 Intake Total 1600 ml Output Total 950 ml Balance 650 ml SADIE LOGAN MD Feb 12, 2019 08:51
--- NOTE | 2019-02-12 10:29 | IPN ---
DATE: 02/11/2019 Dr. Kohli covering physician - coverage note with the attending Dr. Dov Rainey. SUBJECTIVE: Patient last night had some pain in the chest area and a little bit of pain in her ear. She had a little bit of coughing as well. Medicine was called and did a 12-lead EKG, which was read as normal and no cardiac issues. The patient had been only on clear liquids and had not been eating much due to her previous radiation and her difficulty with breathing. She was allowed to start on mechanical soft diet. She was able to eat a little bit. She was also put on intravenous (IV) famotidine 20 mg IV every 12 hours, and she is feeling much better today. She has also been attempting to try and keep the head of the bed elevated. She feels most of her symptoms have resolved at this time. She does have tenderness still in the surgical incision site as well as the radiation site, which she had tenderness prior to the surgery. Otherwise she is feeling fairly good today. EXAMINATION Vital signs: Show temperature 97.6, respiration rate 18 on trach collar, 40% FiO2, cool mist with saturations 95-96%. The patient is resting comfortably in her progressive care bed in room 3230, bed one. There is mild sputum along the inferior aspect of the tracheotomy site. No significant cellulitis is present. No signs of infection. Trach site is secure at this time. IMPRESSION: Postoperative day #2 status post tracheotomy for laryngeal and subglottic edema secondary to radiation therapy, doing much better with her airway. She has had some mild dysphagia with the radiation changes. She is doing better also since she has been started on the famotidine, and at this point, she wishes to try a little bit more of the mechanical soft diet. We will leave this to her discretion. She does feel better with it as she notes. PLAN: She will need to start next week with trach care and getting things in order for the patient to go home sometime next week. Overall, the patient is doing well considering her previous situation. [facility]
[2019-02-12] MEDS ORDERED: LIDOCAINE 4% TOPICAL SOLN 50 ML BTL TOP PRN (11:30)
[2019-02-12] MEDS: LIDOCAINE VISCOUS 2% SOLN 15ML UDC SS PRN (14:49)
[2019-02-13] VITALS (25 sets, daily range): BP systolic 121–156; BP diastolic 63–86; O2SAT 91–97
[2019-02-13] MEDS: LIDOCAINE VISCOUS 2% SOLN 15ML UDC SS PRN ×2 (00:13→20:27)
[2019-02-13] MEDS: MORPHINE 4 MG/ML 1ML VIAL/SYRINGE (J2270) IV PRN ×2 (01:46→17:49)
[2019-02-13] MEDS: ceFAZolin SOD 1 GM in D5W MINI-BAG PLUS 50 ML IV SCH ×3 (05:14→20:27)
[2019-02-13 05:39] LABS: HEMOGLOBIN 12.8 g/dl (12.0-15.5); MEAN CORPUSCULAR HEMOGLOBIN 27.6 pg (27.0-33.0); MEAN CORPUSCULAR VOLUME 86.2 fl (80.0-96.0); PLATELET COUNT, AUTOMATED 354 10^3/uL (150-450); RED BLOOD COUNT 4.64 10^6/uL (4.00-5.40); WHITE BLOOD COUNT 7.4 10^3/uL (4.0-10.0)
[2019-02-13] MEDS: SLF 3 ML SYR IV SCH ×3 (06:02→22:53)
[2019-02-13 06:08] LABS: BLOOD UREA NITROGEN 12 MG/DL (7-18); CALCIUM LEVEL 8.6 MG/DL (8.5-10.1); CARBON DIOXIDE LEVEL 28 MEQ/L (21-32); CHLORIDE LEVEL 105 MEQ/L (98-107); CREATININE FOR GFR 0.47 MG/DL (0.55-1.30); GLOMERULAR FILTRATION RATE > 60.0 (>60); GLUCOSE, FASTING 101 MG/DL (70-100); POTASSIUM SERUM 3.8 MEQ/L (3.5-5.1); SODIUM LEVEL 140 MEQ/L (136-145)
[2019-02-13] MEDS: FAMOTIDINE IV BAG 20 MG in APPROPRIATE DILUENT 1 EA IV SCH ×2 (06:08→17:15)
[2019-02-13] MEDS: HYDROcodone/APAP LIQUID 7.5-325MG 15ML UDC (LORTAB ELIXIR) PO PRN ×4 (06:09→23:36)
--- NOTE | 2019-02-13 06:36 | IPN ---
DATE OF VISIT: 02/12/2019 SUBJECTIVE: The patient overall is doing somewhat better, still having some tenderness around the neck were she has received radiation. We did up her oral pain medicine yesterday. She still was having some discomfort but is able to tolerate clear liquids and has mechanical soft occasionally. Nurse reports some generalized pain but when I went into the room she was resting comfortably. OBJECTIVE: GENERAL: The patient is resting comfortably in no acute distress. VITAL SIGNS: Temperature 97.3, pulse oximetry is 93% on trache collar 40% FiO2, respiration rate to 16, blood pressure is 125/57. The patient's tracheotomy sutures are intact two on each side. There is no significant erythema present. There is no purulent discharge. There is mild mucoid discharge in the inferior aspect of the trache but no signs of acute infection. The patient's Js soft collar is slightly looser than I would care for. It was tightened and this was shown to the nurse and also told to the patient this is her lifeline and needs to be relatively snug but not overly snug. She understands. The rest of the neck exam was unremarkable. IMPRESSION: Postoperative day three status post tracheotomy. At this point would recommend adding viscous lidocaine for her pain in her mucosal area which is likely sore secondary to recent radiation therapy. No signs of infection or inflammation at the tracheotomy site at this time. She will continue with the current pain regimen as she appears to be resting comfortably when I have come into the room. She understands it will be tender secondary to the radiation changes. She understands Dr. Rainey will be back tomorrow and will resume her care. PLAN: Plan is to again add the viscous lidocaine on top of her oral pain medicine and her intravenous (IV) pain medicine. DEIDRA
--- NOTE | 2019-02-13 08:41 | IPNPDOC ---
Text Note Date of Service The patient was seen on 02/13/19. NOTE Subjective: Patient seen and examined at bedside. No acute overnight events reported. Patient complains of continued pain at her trach site. She states her secretions have increased, with no blood. Objective: VITAL SIGNS: Please see below. GENERAL APPEARANCE: NAD, lying comfortably in bed HEENT: NC/AT, EOMI, PERRL, trach in place, area is C/D/I RESPIRATORY: grossly CTA, some coarse upper airway sounds CARDIOVASCULAR: +S1S2, RRR ABDOMEN: soft, NT, +BS EXTREMITIES: no edema LABORATORY DATA: Please see below. ASSESSMENT/PLAN: 33 yo female status post tracheostomy with PMHx laryngeal cancer s/p RT: #s/p tracheostomy - POD #4 - follow as per primary - ENT - still complains of some pain - to d/w ENT regarding pain control #leukocytosis - resolved - likely reactive - no gross signs/symptoms of infections #laryngeal cancer s/p RT/trach - continue o/p follow up as directed #DVT prophylaxis - receiving mechanical prophylaxis VS,Fishbone, I+O VS, Fishbone, I+O Laboratory Tests 02/13/19 05:20 Red Blood Count 4.64, Mean Corpuscular Volume 86.2, Mean Corpuscular Hemoglobin 27.6, Mean Corpuscular Hemoglobin Concent 32.0, Red Cell Distribution Width 13.6, Calcium Level 8.6 Vital Signs Date Time Temp Pulse Resp B/P (MAP) Pulse Ox O2 Delivery O2 Flow Rate FiO2 02/13/19 06:09 16 02/13/19 06:00 93 Trach Collar 10.0 40 02/13/19 04:00 97.9 87 128/71 (90) I&O- Last 24 Hours up to 6 AM 02/13/19 06:00 Intake Total 1450 ml Output Total 500 ml Balance 950 ml SADIE LOGAN MD Feb 13, 2019 08:41
[2019-02-13] MEDS ORDERED: SENNA 8.6 MG TAB (SENOKOT) PO PRN (10:30)
[2019-02-13] MEDS: DOCUSATE SODIUM 100 MG CAP PO PRN (17:14)
[2019-02-14] VITALS (16 sets, daily range): BP systolic 126–140; BP diastolic 75–82; O2SAT 91–99
[2019-02-14] MEDS: MORPHINE 4 MG/ML 1ML VIAL/SYRINGE (J2270) IV PRN (03:56)
[2019-02-14] MEDS: ceFAZolin SOD 1 GM in D5W MINI-BAG PLUS 50 ML IV SCH (05:55)
[2019-02-14] MEDS: SLF 3 ML SYR IV SCH ×3 (06:04→22:01)
[2019-02-14] MEDS: FAMOTIDINE IV BAG 20 MG in APPROPRIATE DILUENT 1 EA IV SCH ×2 (06:46→17:39)
[2019-02-14] MEDS: HYDROcodone/APAP LIQUID 7.5-325MG 15ML UDC (LORTAB ELIXIR) PO PRN ×4 (07:39→19:57)
--- NOTE | 2019-02-14 09:01 | IPNPDOC ---
Text Note Date of Service The patient was seen on 02/14/19. NOTE Gloria is still struggling with the excessive secretions and may take up to 2 weeks for her to settle down. She also has a great deal of pain and is needing narcotics to manage this. Today the exam shows the trach in place but she is not moving air through her la rynx. The skin beneath the trach is somewhat macerated. Sutures are removed to allow some mobiltiy of trach tube for skin care. Recommend the Ostomy team help us with this. She is getting educated on the care of the trach. Hoepfully home in a couple days VS,Fishbone, I+O VS, Fishbone, I+O Vital Signs Date Time Temp Pulse Resp B/P (MAP) Pulse Ox O2 Delivery O2 Flow Rate FiO2 02/14/19 08:09 18 02/14/19 08:00 97.6 91 137/80 (99) 94 40 02/14/19 06:00 Trach Collar 10.0 I&O- Last 24 Hours up to 6 AM 02/14/19 06:00 Intake Total 1420 ml Output Total 600 ml Balance 820 ml PATRICK HUGHES MD Feb 14, 2019 09:01
[2019-02-14] MEDS: DOCUSATE SODIUM 100 MG CAP PO PRN (09:25)
[2019-02-14] MEDS ORDERED: MORPHINE 4 MG/ML 1ML VIAL/SYRINGE (J2270) IV ONE (15:00)
[2019-02-15] VITALS (16 sets, daily range): BP systolic 111–141; BP diastolic 68–92; O2SAT 91–96
[2019-02-15] MEDS: HYDROcodone/APAP LIQUID 7.5-325MG 15ML UDC (LORTAB ELIXIR) PO PRN ×6 (01:28→23:54)
[2019-02-15] MEDS: FAMOTIDINE IV BAG 20 MG in APPROPRIATE DILUENT 1 EA IV SCH ×2 (06:00→17:26)
[2019-02-15] MEDS: SLF 3 ML SYR IV SCH ×3 (06:14→22:01)
[2019-02-16] VITALS (9 sets, daily range): BP systolic 117–130; BP diastolic 63–86; O2SAT 94–97
[2019-02-16] MEDS: HYDROcodone/APAP LIQUID 7.5-325MG 15ML UDC (LORTAB ELIXIR) PO PRN ×3 (04:07→14:40)
[2019-02-16] MEDS: FAMOTIDINE IV BAG 20 MG in APPROPRIATE DILUENT 1 EA IV SCH (05:54)
[2019-02-16] MEDS: SLF 3 ML SYR IV SCH ×2 (05:54→13:43)
[2019-02-16] MEDS ORDERED: HYDR1SOL PO (13:58)
--- NOTE | 2019-02-28 23:53 | RO ---
DATE OF PROCEDURE: 02/09/2019 PREPROCEDURE DIAGNOSIS: Upper airway obstruction secondary to radiation therapy for laryngeal carcinoma (CA). POSTPROCEDURE DIAGNOSIS: Upper airway obstruction secondary to radiation therapy for laryngeal carcinoma. PROCEDURE: Tracheotomy SURGEON: Dov Rainey MD LADLE PULLER: ANESTHESIA: INDICATIONS: This is a 33-year-old who recently completed full course radiation therapy for a T1N0 lesion of the glottis. She had a significant radiation mucositis and laryngeal edema from the treatment and presented with stridor, loss of voice, and difficulty breathing. On examination, there was marked edema and erythema with exudates covering the superior portion of the larynx. It was felt that her airway in jeopardy, and she was admitted to the hospital for urgent tracheotomy. DESCRIPTION OF PROCEDURE: Satisfactory mask anesthesia was converted to endotracheal using a GlideScope for visualization of the larynx. The number 5-1/2 tube was easily inserted through the glottis to support the airway. The tube was secured by anesthesia and the procedure begun. The skin of the head and neck was prepped and draped in the usual sterile fashion. 1% Xylocaine with 1:100,000 epinephrine was used to inject the midline between the sternal notch and cricoid. A vertical incision was made starting from the cricoid cartilage inferiorly. Subcutaneous fat was divided sharply. The superficial layer of deep cervical fascia was divided in the midline. Strap muscles were retracted laterally. Thyroid isthmus was encountered at this time. It was elevated off the anterior tracheal wall with Radha clamps. It was divided between Radah clamps and suture ligatured with #3-0 chromic suture. Once the anterior wall of the trachea was free of all soft tissue, the first 2-1/2 rings were easily visualized. A horizontal incision was made between ring 1 and 2, small vertical incision made inferiorly, and small triangles of cartilage removed. A #6 tracheotomy tube easily inserted after inspecting the airway above and below. There was no evidence of any tumor. The tube was placed and then secured with four #2-0 silk sutures and trach tape. She tolerated the procedure well and then was sent to recovery in satisfactory condition.
--- NOTE | 2019-03-02 14:41 | DSES ---
DATE OF ADMISSION: 02/09/2019 DATE OF DISCHARGE: 02/16/2019 ADMITTING DIAGNOSIS: Upper airway obstruction secondary to edema of the larynx from radiation therapy for laryngeal carcinoma. 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 She is having maximum radiation reaction at this time and came to the office with stridor, difficulty breathing and shortness of breath. Examination at that time showed a very angry larynx with exudates covering the supraglottis, edema of the false cords and a poor airway. It was elected to bring her to the hospital immediately in preparation for tracheotomy. She was brought to the operating room on the day of admission and underwent a successful tracheotomy under general anesthesia and then was sent initially to progressive care unit (PCU) for care. As her recovery progressed, she was moved to a regular room. She had issues with coarse, new trach secretions, some pain initially and dysphagia. Over the days, with the help of the medical service, she was tuned up to the point where she was able to eat, drink. Then on the fifth postoperative day, a change of trach tube allowed her to be fitted with a Passy-Fili valve speech production. Finally, after she was able to take care of her trach instructions were given to her and arrangements were made for home healthcare, she was discharged with plans for followup in the office. Home healthcare was going to deliver supplies to her. She was educated in trach care and she was discharged home with pain medication only at this point. She will be followed up in the office in 5 days.
== END 2019-02-16 17:20 | disposition home health service (06) | DRG 950 ==
LOC: M ED 11:18 → M SDC 11:40 → M PCU 15:25
PROVIDERS: ADMIT Specialist; ATTEND Specialist
PROC: 0B110F4 Bypass Trachea to Cutaneous with Tracheostomy Device, Open Approach (ICD-10-PCS; principal; 2019-02-09 11:32)
DX: T66.XXXA Radiation sickness, unspecified, initial encounter (principal); J38.4 Edema of larynx; C32.9 Malignant neoplasm of larynx, unspecified; Y84.8 Other medical procedures as the cause of abnormal reaction of the patient, or of later complication, without mention of misadventure at the time of the procedure; D72.829 Elevated white blood cell count, unspecified

== ENCOUNTER 2019-02-24 14:50 | Emergency (ER) | payer OTHER ==
[~2019-02-24] VITALS: Ht 167.6 cm; Wt 88.2 kg
[~2019-02-24 14:50] MED LIST changes: +HYDR1SOL PO; +IBUP200T45 PO; +ROLA1CHW PO; +ZYRTTAB8 PO
--- NOTE | 2019-02-24 15:59 | REP ---
CT neck without contrast History: Abscess Comparison: 09/19/2018 The patient is status post tracheostomy. The nasal oral and hypopharynx larynx and subglottic trachea are normal in appearance. The salivary and thyroid glands are normal in size and density. Stranding is present in the the anterior and anterolateral subcutaneous tissues and inferior submandibular spaces this extends from the level of the submandibular spaces inferior to the level of the thyroid gland. There is minimal thickening of the left platysma muscles. These findings are consistent with edema. An enlarged lymph node 123 cm in width is present in the left internal jugular chain at the level of the hypopharynx. Small lymph nodes less than 1 cm in size are present in the right internal jugular chain, posterior triangles, submandibular and submental areas. The lung apices are clear. Minimal mucosal thickening is present in the left maxillary sinus. Impression: 1. The above findings are consistent with cellulitis in the anterior and anterolateral subcutaneous tissues and submandibular spaces. 2. The patient is status post tracheostomy. Electronically Signed by Rolf Reynoso MD 02/24/2019 03:51 P
[2019-02-24] MEDS ORDERED: MORPHINE 4 MG/ML 1ML VIAL/SYRINGE (J2270) IV ONE (16:15)
[2019-02-24] MEDS ORDERED: ONDANSETRON 4MG/2ML VIAL (J2405) IV ONE (16:15)
[2019-02-24] MEDS ORDERED: NS 1,000 ML IV ONE (16:15)
[2019-02-24] MEDS ORDERED: CLEO300C2 PO (16:28)
[2019-02-24] MEDS ORDERED: NORC1TAB7 PO (16:28)
[2019-02-24] MEDS ORDERED: [UNRECOGNIZED DRUG - REMARK] (16:30)
[2019-02-24] MEDS ORDERED: [UNRECOGNIZED DRUG - SUPPLY] (16:34)
[2019-02-24 17:05] VITALS: BP 127/64
--- NOTE | 2019-02-26 16:14 | CR ---
DATE OF CONSULTATION: 02/24/2019 The patient was seen in the emergency department with a history of swelling of her neck. 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 The patient completed her radiation therapy 2 weeks ago. Because of the swelling inside the pharynx and larynx, she did require a tracheotomy. Otherwise, she has been healthy. She has no problems with her breathing. PHYSICAL EXAMINATION: She has a lot of edema in her neck. There is some erythema around the trach site. The cannula was dirty and plugged, especially the fenestration. I examined the oropharynx, hypopharynx and larynx. Her glottic chink was about 3 mm posteriorly, but she still had quite a bit of edema. There was reduced motion of the right cord. IMPRESSION: These are normal post radiation therapy findings. I reassured her in that regard. I think that she has a cellulitis around her trach site. PLAN: I am going to place her on oral clindamycin. She is to use saline irrigation for trach site, as well as Bacitracin ointment around the trach site. She should have cannulas to change because she has the same cannula that she had over the last 3 weeks. I think that she is a good candidate for decannulation soon.
--- NOTE | 2019-02-27 12:48 | ED PDOC ---
Post-Departure Follow-Up dr miller faxed formal report of ct neck for fu Everardo Lizama MD Feb 27, 2019 12:48
== END 2019-02-24 17:17 | disposition home or self-care (01) ==
LOC: M ED 14:50 → EDBD 14:50 → M ED 17:17
DX: L03.221 Cellulitis of neck (principal); Z93.0 Tracheostomy status; C32.9 Malignant neoplasm of larynx, unspecified; K21.9 Gastro-esophageal reflux disease without esophagitis; G43.909 Migraine, unspecified, not intractable, without status migrainosus; Z87.442 Personal history of urinary calculi; Z87.891 Personal history of nicotine dependence; Z88.8 Allergy status to other drugs, medicaments and biological substances; Z91.013 Allergy to seafood
CPT/HCPCS: 70490; 96374; 96375; 99284; J2270; J2405

== ENCOUNTER → 2019-03-01 | Outpatient (CLI) | payer OTHER ==
[~2019-03-01] MED LIST changes: +CLEO300C2 PO; +NORC1TAB7 PO; +[UNRECOGNIZED DRUG - REMARK]; +[UNRECOGNIZED DRUG - SUPPLY]
--- NOTE | 2019-03-03 07:58 | RADONC ---
RADIATION ONCOLOGY FOLLOWUP NOTE DATE: 03/01/2019 CHART #: [id number] DIAGNOSIS: Left vocal cord carcinoma. STAGE: I, T1N0M0. ECOG PERFORMANCE STATUS: 0. FOLLOWUP NOTE: Ms. 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 The patient presents today reporting that at this time she is generally doing well, although she has a trache tube in place. Apparently, the patient developed some brisk edema in the larynx requiring placement of a tracheostomy tube 2 weeks following completion of therapy. The patient now reports that she is undergoing progressive downsizing of her trache tube to eventual removal. She is having less discomfort over the past week or so than she was 2 weeks following completion of her radiation. REVIEW OF SYSTEMS: The patient's review of systems is positive for the placement of a tracheostomy tube, but is otherwise noncontributory. Denies nausea, vomiting, fevers, chills, night sweats, diplopia, headaches, anxiety or depression, anorexia, weight loss, visual disturbances, chest pain, urinary or bowel difficulties, bone pain, or neurological problems. PHYSICAL EXAMINATION: The patient is a well-developed, well-nourished white female in no acute distress. HEENT: Exam is normocephalic, atraumatic. Extraocular movements are intact. Oral cavity examination reveals no lesions or nodularity. The patient has a tracheostomy tube in place. There is no palpable cervical, supraclavicular, infraclavicular or axillary lymphadenopathy present. ASSESSMENT: The patient is being followed and managed closely by Dr. Rainey, her head and neck surgeon, and is presently undergoing progressive downsizing of her tracheostomy tube for planned final removal in the next 2 weeks or so. She is slowly recovering from her radiation edema at this point and I have set her up to see me again in 2 months for further followup. Once again, she will continue her close followup and management with Dr. Dov Rainey.
== END ==
LOC: M ONCR 11:30
PROVIDERS: ATTEND Radiology Radiation Oncology
DX: C32.0 Malignant neoplasm of glottis (principal); Z92.3 Personal history of irradiation

== ENCOUNTER → 2019-04-07 | Outpatient (CLI) | payer OTHER ==
--- NOTE | 2019-04-19 00:26 | ECWPNPC ---
PATIENT NAME: TOMY RASHEED : 1985 GENDER: FEMALE VISIT DATE: 04/07/2019 DISCHARGE DATE: 04/07/19 1158 VISIT LOCKED DATE TIME: PHYSICIAN: BENJAMIN LO MD RESOURCE: BENJAMIN LO MD REASON FOR APPOINTMENT 1. [place] PT, NECK PAIN STAT REFERRAL-PATIENT IS HERE CHECKING IN. HISTORY OF PRESENT ILLNESS HISTORY OF PRESENT ILLNESS: PAIN THE PATIENT DESCRIBES THE PAIN... 33 YEAR OLD FEMALE PATIENT WITH A HISTORY OF CHRONIC NECK PAIN. THE PATIENT DESCRIBES THE PAIN BURNING, STABBING, SHOOTING, TENDER, SHARP, AND CONTINUOUS WITH A PAIN SCORE OF 8-10/10 DEPENDING ON PHYSICAL ACTIVITY. THE PATIENT STATES SHE EXPERIENCED A SORE THROAT IN AUGUST OF 2018. THE PATIENT STATES SHE WENT TO HAVE HER THROAT EVALUATED, A BIOPSY WAS ORDERED, AND CANCER WAS FOUND. THE PATIENT SAYS SHE RECEIVED RADIOTHERAPY THAT HAS CAUSED HER CURRENT THROAT PAIN. THE PATIENT SAYS HER THROAT PAIN IS NONSTOP AND IS CAUSING DIFFICULTIES IN SLEEPING, EATING, AND PERFORMING HER DAILY ACTIVITIES. THE PATIENT SAYS SHE HAS TRIED HYDROCODONE IN THE LIQUID FORM, HOWEVER IT DID NOT OFFER MUCH PAIN RELIEF FOR HER. THE PATIENT STATES SHE WAS USING GABAPENTIN 400 MG PREVIOUSLY, BUT STOPPED USING THE MEDICATION LAST SEPTEMBER. THE PATIENT SAYS SHE WAS INFORMED THE THROAT PAIN CAN LAST OVER A YEAR AND SHE IS DESPERATE TO RECEIVE RELIEF FROM THE PAIN. PATIENT DENIES UNEXPLAINABLE WEIGHT LOSS, FEVER, CHILLS, NEW CHANGES ON HER URINARY OR BOWEL CONTROL. FALL RISK SCREENING: SCREENING :NO FALLS REPORTED IN THE LAST YEAR CURRENT MEDICATIONS TAKING IBUPROFEN 800 MG TABLET 1 TABLET WITH FOOD OR MILK NEEDED ORALLY THREE TIMES A DAY TAKING HYDROCODONE-ACETAMINOPHEN 2.5-167 MG/5ML ELIXIR DIRECTED ORALLY MEDICATION LIST REVIEWED AND RECONCILED WITH THE PATIENT PAST MEDICAL HISTORY VOCAL CHORD CANCER RADIATION TX X 7 WEEKS ALLERGIES IV DYE: ANAPHYLAXIS - ALLERGY SHELLFISH: ANAPHYLAXIS - ALLERGY SURGICAL HISTORY TUBALIGATION 2008 TONSILLECTOMY 2007 KIDNEY STONE REMOVED 2013 TRACHEOSTOMY PLACEMENT AND REMOVAL 01/2019-03/2019 VOCAL CHORD BX 12/2018 FAMILY HISTORY FATHER: ALIVE MOTHER: ALIVE 1 BROTHER(S) - HEALTHY. 2 SON(S) - HEALTHY. 1 SON LYME DISEASE. SOCIAL HISTORY GENERAL: TOBACCO USE ARE YOU A:CURRENT SMOKER ARE YOU INTERESTED IN QUITTING?THINKING ABOUT QUITTING INSURANCE WON'T HELP HOW MANY CIGARETTES A DAY DO YOU SMOKE?08-02 PAIN CLINIC PFS, CLERGY, PUBLIC HEALTH REFERRALS HAS THE PATIENT BEEN EDUCATED REGARDING HIS/HER PLAN OF CARE?YES HAS THE PATIENT BEEN EDUCATED REGARDING PAIN, THE RISK FOR PAIN, THE IMPORTANCE OF EFFECTIVE PAIN MANAGEMENT, AND THE PAIN ASSESSMENT PROCESS?YES ADVANCE DIRECTIVE ADVANCE DIRECTIVE DISCUSSED WITH PATIENT:YES DECLINED EDUCATION LEVEL OF EDUCATION:FINISHED [employer] [id number] OTHER LANGUAGE LANGUAGES SPOKEN:[place] LEARNING BARRIERS / SPECIAL NEEDS BARRIERS TO LEARNING?NO HEARING IMPAIRED?NO VISION IMPAIRED?YES :CORRECTIVE LENSES COGNITIVELY IMPAIRED?NO READINESS TO LEARN?YES LEARNING PREFERENCES?NO LEARNING CAPABILITIES PRESENT?YES EMOTIONAL BARRIERS?NO SPECIAL DEVICES?NO HOSPITALIZATION/MAJOR DIAGNOSTIC PROCEDURE TRACHEOSTOMY 01/2019 REVIEW OF SYSTEMS REVIEWED BY: PROVIDER: BENJAMIN LO MD . CONSTITUTIONAL: ANY CHANGE IN YOUR MEDICAL CONDITION? NO . CHILLS NO . FEVER NO . INFECTION: DO YOU HAVE NEW INFECTIONS? YES, S/P TRACH INFECTION, TX'D W ABX AND STILL INFECTED . DO YOU HAVE HISTORY OF MRSA? NO . MUSCULOSKELETAL: ANY NEW PATTERNS OF PAIN OR NUMBNESS? YES ,PAIN IS WORSE TO UPPER ANTERIOR NECK AND SUBMANDIBLE . GASTROENTEROLOGY: ANY NEW CHANGE IN BOWEL CONTROL? NO . GENITOURINARY: ANY NEW CHANGE IN BLADDER CONTROL? NO . IS THERE A CHANCE YOU COULD BE ? NO . HEMATOLOGY/LYMPH: DO YOU TAKE ANY BLOOD THINNERS? (FOR EXAMPLE- COUMADIN, PLAVIX, AGGRENOX, PLATEL, PRADAXA, OR XARELTO) NO . WHEN WAS YOUR LAST DOSE? DATE: TIME: . NEUROLOGY: HAVE YOU FALLEN IN THE PAST 12 MONTHS? NO . ANY NEW EXTREMITY NUMBNESS OR WEAKNESS? NO . CARDIOLOGY: DO YOU HAVE A PACEMAKER OR DEFIBRILLATOR? NO . RESPIRATORY: HAVE YOU BEEN SICK IN THE PAST WEEK? YES, THROAT PAIN . FEVER NO . FLU LIKE SYMPTOMS? NO . COUGH YES, NON-PRODUCTIVE . INTEGUMENTARY: DO YOU HAVE ANY RASHES OR OPEN SORES? YES, S/P TRACHEOSTOMY INCISION NOT HEALED . ALLERGIC/IMMUNO: ARE YOU ALLERGIC TO IV DYE? YES, IV DYE AND SHELLFISH . ANY NEW ALLERGIES? NO . PSYCHIATRIC: DO YOU HAVE THOUGHTS OF HURTING YOURSELF OR SOMEONE ELSE? NO . ARE YOU ABUSED, NEGLECTED, OR IN AN UNSAFE ENVIRONMENT? NO . ENDOCRINOLOGY: ARE YOU DIABETIC? NO . OTHER: DO YOU NEED ANY PRESCRIPTIONS? YES, WOULD LIKE TO DISCUSS . IF YES, PLEASE LIST: ____ . ANY NEW PROBLEMS WITH YOUR MEDICATIONS? YES, CURRENT REGIMEN WORKS FOR ABOUT AN HOUR . WHEN DID YOU LAST EAT? ____ . WHEN DID YOU LAST DRINK? ____ . WHAT DID YOU LAST DRINK? ____ . NAME OF PERSON DRIVING YOU HOME? ____ . DO YOU HAVE ANY OTHER QUESTIONS OR CONCERNS NO . VITAL SIGNS WT 194.8 LBS, HT 56 IN, BMI 43.67 INDEX, BP 141/83 MM HG, HR 94 /MIN, RR 18 /MIN, TEMP 97.1 F, OXYGEN SAT % 99%, NA INITIALS AW 1028, REVIEWED BY: EM. EXAMINATION GENERAL EXAMINATION: PATIENT IS ALERT O X 3 AND COOPERATIVE. LUNGS CLEAR, TO AUSCULTATION. HEART: NO MURMURS OR GALLOPS; FACIAL CRANIAL NERVES ARE GROSSLY NORMAL. GOOD SYMMETRY OF FACIAL MUSCLE MOVEMENT. NORMAL VISUAL COTTON. MALLAMPATI OF AIRWAY TUBE. HISTORY OF TRACHEOSTOMY. HYPERPATHIA OVER NECK AREA. PATIENT WALKS WITH NORMAL GAIT. PATIENT CAN MOVE NECK. ASSESSMENTS THROAT PAIN - R07.0 (PRIMARY) NECK PAIN - M54.2 NEURALGIA - M79.2 HISTORY OF VOCAL CORD CANCERSTATUS POST RADIOTHERAPY. TREATMENT THROAT PAIN CLINICAL NOTES: WE DISCUSSED SEVERAL ISSUES WITH MS. RASHEED'S PAIN MANAGEMENT CASE. I DISCUSSED WITH THE PATIENT THAT THIS IS AN INTERVENTIONAL CLINIC AND I WOULD LIKE TO REFER HER TO [facility]S PALLIATIVE CARE PROGRAM FOR MEDICATION MANAGEMENT. THE PATIENT IS EXTREMELY UNCOMFORTABLE AND SHE WAS CRYING DURING THE VISIT DUE TO THE PAIN. THE PATIENT HAS USED OXYCODONE IN THE PAST THAT PROVIDED HER WITH ADEQUATE PAIN RELIEF. I WILL START THE PATIENT ON OXYCODONE 5 MG UP TO 2 TABLETS DAILY, 14 TABLETS FOR THE WEEK TO AID IN PAIN RELIEF. I AM ALSO STARTING THE PATIENT ON GABAPENTIN 400 MG. I PROVIDED A SCHEDULE FOR THE PATIENT TO FOLLOW TO SLOWLY BUILD UP TO 3 TABLETS PER DAY IN ORDER TO AVOID ANY ADVERSE SIDE EFFECTS. INSTRUCTIONS WERE GIVEN, QUESTIONS WERE ANSWERED, PATIENT REPORTS UNDERSTANDING AND AGREES WITH THE PLAN. I, KRYSTA RAMOS, DOCUMENTED THE ABOVE INFORMATION ACTING A SCRIBE FOR DR. LO. I HAVE REVIEWED THE ABOVE DOCUMENT, WRITTEN BY KRYSTA SMITHIBLeighann AND I VERIFY THAT IT IS ACCURATE. DEAR DR. MIKAYLA CARO: THANK YOU FOR YOUR KIND REFERRAL OF TOMY RASHEED. IF YOU WANT TO DISCUSS HER CASE WITH ME PLEASE CALL ME AT THE PAIN CENTER AT [phone]. SINCERELY, BENJAMIN LO MD PAIN MEDICINE . OTHERS START GABAPENTIN CAPSULE, 400 MG, 1 CAPSULE, ORALLY, THREE TIMES DAILY, 30 DAY(S), 90, REFILLS 0 START OXYCODONE HCL TABLET, 5 MG, 1 TABLET NEEDED, ORALLY FOR PAIN, EVERY 12 HRS MDD2, 7 DAYS, 14, REFILLS 0 PROCEDURE CODES FA211 ESTABILISHED PATIENT [facility] CHARGE G8427 CURRENT MEDS W/DOSAGES DOCUMENTED G8730 PAIN ASSESS POS TOOL F/U PLAN DOC DISPOSITION & COMMUNICATION FOLLOW UP REASON: REFER TO PALLIATIVE CARE ELECTRONICALLY SIGNED BY BENJAMIN LO MD, MD ON 04/18/2019 AT 01:13 PM EDT DISCLAIMER : THIS IS A VISIT SUMMARY EXTRACTED FROM THE [email or web address] CHART. IT IS NOT A COPY OF THE [email or web address] PROGRESS NOTE. MTDD
== END ==
LOC: M PAIN 10:00
PROVIDERS: ATTEND Anesthesiology
DX: R07.0 Pain in throat (principal); M54.2 Cervicalgia; M79.2 Neuralgia and neuritis, unspecified; G89.29 Other chronic pain; F17.210 Nicotine dependence, cigarettes, uncomplicated; Z91.013 Allergy to seafood; Z91.041 Radiographic dye allergy status; E66.01 Morbid (severe) obesity due to excess calories; Z68.41 Body mass index [BMI] 40.0-44.9, adult; Z85.09 Personal history of malignant neoplasm of other digestive organs; Z79.891 Long term (current) use of opiate analgesic; Z79.899 Other long term (current) drug therapy

== ENCOUNTER 2019-06-16 11:13 | Emergency (ER) | payer OTHER ==
[~2019-06-16] VITALS: Ht 165.1 cm; Wt 81.7 kg
[2019-06-16] MEDS ORDERED: ONDANSETRON 4MG/2ML VIAL (J2405) IV ONE (12:15)
[2019-06-16] MEDS: MORPHINE 2 MG/ML 1ML SYRINGE (J2270) IV PRN ×2 (12:34→13:55)
[2019-06-16 13:11] LABS: ALBUMIN 3.8 GM/DL (3.2-5.2); ALT/SGPT 16 U/L (12-78); BILIRUBIN,DIRECT < 0.1 MG/DL (0.0-0.2); BILIRUBIN,TOTAL 0.2 MG/DL (0.2-1.0); TOTAL PROTEIN 7.1 GM/DL (6.4-8.2)
[2019-06-16] MEDS ORDERED: KETOROLAC 30 MG/ML VIAL (J1885) IV ONE (13:15)
[2019-06-16] MEDS ORDERED: KETO10TAB PO (14:35)
[2019-06-16 14:40] VITALS: BP 148/74
--- NOTE | 2019-06-16 15:02 | REP ---
Soft-tissue neck CT study without contrast: History: Laryngeal carcinoma. The patient gives a history of radiation therapy. Sore throat. Comparison neck CT study February 24, 2019. There is also a prior study from September 19, 2018. CT findings: Parotid glands are normal and symmetric. Submandibular glands are unremarkable. There is no evidence of neck mass or adenopathy. No laryngeal mass is visible. There is some fibrosis and indentation of the anterior skin in the midline at the site where previous study showed tracheostomy tube. Tracheostomy tube has been withdrawn. The subglottic airway is unremarkable. There is subtle irregularity in the region of the true and false cords in the larynx. No definite mass effect is seen. Arytenoid cartilages and thyroid cartilage are intact. Hyoid bone is unremarkable. No cervical adenopathy is seen. The lung apices are clear. No bony destructive lesion is appreciated. Impression: Tracheostomy tube has been removed. There is some fibrosis at its insertion site anterior to the trachea. There is fine irregularity of the surfaces of the true and false cords. No definite laryngeal mass lesion. No adenopathy or abnormal fluid collection is appreciated. Electronically Signed by Chaim James MD 06/16/2019 04:00 P
--- NOTE | 2019-06-16 15:58 | REP ---
REASON: Flank pain. PRIORS: None. The lung bases are clear. A minimal focal area of subsegmental atelectasis is seen in the left lower lobe. There are no pleural or pericardial effusions. Limited evaluation of the solid intra-abdominal organs and gallbladder show no gross abnormalities. Granulomatous calcifications are seen incidentally in the liver and spleen. Limited evaluation of the pancreas and adrenal glands show no gross abnormalities. Limited evaluation of the left kidney shows three nonobstructing calculi in the inferior pole the largest of which measures 4 mm. There are no left sided ureteroliths. There is no left sided hydroureter. The right kidney is enlarged. Two tiny calcifications are seen in the right kidney, one in the interpolar region and the other in the inferior pole. There is moderate right sided hydronephrosis and proximal hydroureter. Within the ureter there is a 7 mm sized ureterolith. This is seen in conjunction with marked periureteral stranding. There are no urinary bladder calcifications. There is no free fluid or free air seen in the abdomen or pelvis. Limited evaluation of the abdominal aorta and paraaortic regions show no gross abnormalities. The intra-abdominal and intrapelvic bowel loops and their mesenteries are within normal limits. Bone window technique throughout the exam shows the osseous structures to be within normal limits. IMPRESSION: 1. Right sided obstructive uropathy as described above. 2. Bilateral nonobstructing renal calculi as described above. Electronically Signed by Osbaldo Velázquez DO 06/16/2019 04:33 P
== END 2019-06-16 14:41 | disposition home or self-care (01) ==
LOC: M ED 11:13
DX: R13.10 Dysphagia, unspecified (principal); R10.30 Lower abdominal pain, unspecified; N20.1 Calculus of ureter; Z85.21 Personal history of malignant neoplasm of larynx; Z92.3 Personal history of irradiation; Z79.891 Long term (current) use of opiate analgesic; Z79.899 Other long term (current) drug therapy; Z91.013 Allergy to seafood; Z88.3 Allergy status to other anti-infective agents
CPT/HCPCS: 70490; 74176; 80047; 80076; 81001; 84702; 96374; 96375; 96376; 99284; J1885; J2270; J2405

== ENCOUNTER → 2019-10-25 | Outpatient (CLI) | payer OTHER ==
[~2019-10-25] MED LIST changes: +KETO10TAB PO
--- NOTE | 2019-10-25 14:13 | REP ---
PET/CT: HISTORY: Restaging malignant neoplasm of the glottis. COMPARISONS: Comparison PET/CT study December 21, 2018. Comparison CT study of the neck June 16, 2019. Comparison CT abdomen pelvis June 16, 2019. TECHNIQUE: 50 minutes following the intravenous injection of a 8.86 mCi dose of F-18 FDG, three-dimensional PET scintigraphy is acquired from the skull base to the proximal thighs. Triplanar noncontrast CT scanning is acquired through the same anatomic range for attenuation correction, and image registration with scan parameters optimized to minimize radiation exposure to the patient. PET scintigraphy and CT datasets were fused and displayed on a workstation with multiplanar and projection display capability. PET/CT FINDINGS: There is no evidence of hypermetabolic adenopathy in the head and neck region on either side. There is some mildly hypermetabolic circumferential uptake at the glottis level with maximum standard uptake value 4.36. Corresponding CT shows some circumferential density at the level of the vocal cords but no overt mass. No visible adenopathy. No abnormal hypermetabolic uptake is seen in the chest. The abdomen and pelvis images are unremarkable as well. There are granulomatous calcifications scattered in the right chest. No suspicious pulmonary nodule is seen. IMPRESSION: There is no evidence of hypermetabolic adenopathy. Mildly hypermetabolic uptake is seen at the level of the glottis itself which is nonspecific. There is some soft tissue induration at the level of the cords. Possibly post-treatment change. This was not apparent on the previous PET/CT. Electronically Signed by Chaim James MD 10/25/2019 04:09 P
== END ==
LOC: M PLARAD 09:31
PROVIDERS: ATTEND Specialist
DX: C32.0 Malignant neoplasm of glottis (principal)

== ENCOUNTER → 2020-01-10 | Outpatient (CLI) | payer OTHER | LOC: M LABSMTC 10:47 | PROVIDERS: ATTEND Family Medicine | DX: Z11.59 Encounter for screening for other viral diseases (principal); Z20.828 Contact with and (suspected) exposure to other viral communicable diseases ==

== ENCOUNTER → 2020-06-26 | Outpatient (CLI) | payer OTHER ==
[~2020-06-26] MED LIST changes: +BACT800T5 PO; +BENA25CA4 PO; +BENZ-18 PO; +DIAZ5TAB PO; +FENT50DI5 TD; +ONDA-83 PO; +OXYC30TA PO
== END ==
LOC: M LABSMTC 12:57
PROVIDERS: ATTEND Anesthesiology
DX: Z01.812 Encounter for preprocedural laboratory examination (principal); Z20.828 Contact with and (suspected) exposure to other viral communicable diseases
CPT/HCPCS: C9803; U0003

== ENCOUNTER 2020-07-01 08:02 | Day surgery (SDC) | payer OTHER ==
[~2020-07-01] VITALS: Ht 165.1 cm; Wt 78.5 kg
[~2020-07-01 08:02] MED LIST changes: -BACT800T5 PO; -BENA25CA4 PO; -BENZ-18 PO; -DIAZ5TAB PO; +LR 1,000 ML IV ONE; -ONDA-83 PO
[2020-07-01] MEDS ORDERED: MIDAZOLAM INJ 2MG/2ML VIAL (J2250 PER 1MG) As Ordered ONE ×2 (09:58→10:22)
[2020-07-01] MEDS ORDERED: EPINEPHrine 1MG/ML INJ 30ML MD-VIAL As Ordered ONE (09:58)
[2020-07-01] MEDS ORDERED: METHYLENE BLUE 0.5% (5MG/ML) 10 ML AMP (PROVAYBLUE) As Ordered ONE (09:58)
[2020-07-01] MEDS ORDERED: fentaNYL 100 MCG/2 ML INJECTION (J3010) As Ordered ONE (09:59)
[2020-07-01] MEDS ORDERED: LIDOCAINE 2% 100MG/5ML SDV (FOR ANES.) As Ordered ONE (09:59)
[2020-07-01] MEDS ORDERED: BACITRACIN OINTMENT 30GM TUBE As Ordered ONE (09:59)
[2020-07-01] MEDS ORDERED: LIDOCAINE W/EPINEPHRINE 1% 20ML VIAL As Ordered ONE (09:59)
[2020-07-01] MEDS ORDERED: propofoL 500 MG/50 ML VIAL As Ordered ONE (10:00)
[2020-07-01] MEDS ORDERED: KETAMINE HCL 200 MG/20 ML VIAL As Ordered ONE (10:23)
[2020-07-01] MEDS ORDERED: ONDANSETRON 4MG/2ML VIAL As Ordered ONE (10:26)
[2020-07-01] MEDS ORDERED: LR 1,000 ML IV SCH (11:15)
[2020-07-01] MEDS ORDERED: HYDROMORPHONE HCL 0.5 MG/ 0.5 ML SYRINGE (J1170 PER 1) IV PRN (11:15)
[2020-07-01] MEDS ORDERED: fentaNYL 100 MCG/2 ML INJECTION (J3010) IV PRN (11:15)
[2020-07-01] MEDS ORDERED: oxyCODONE 5MG TAB PO PRN (11:15)
[2020-07-01] MEDS ORDERED: ONDANSETRON 4MG/2ML VIAL IV PRN (11:15)
[2020-07-01 11:30] VITALS: BP 133/84
[2020-07-01] MEDS ORDERED: IBUPROFEN 800 MG TAB PO PRN (11:30)
[2020-07-01] MEDS ORDERED: PERCOCET 5MG/325MG TAB PO PRN (11:30)
[2020-07-01] MEDS ORDERED: oxyCODONE 5MG TAB PO ONE (12:00)
--- NOTE | 2020-09-18 11:53 | RO ---
OPERATIVE NOTE DATE OF OPERATION: 07/01/2020 PREOPERATIVE DIAGNOSIS: Hypertrophic scar formation following tracheostomy. POSTOPERATIVE DIAGNOSIS: Hypertrophic scar formation following tracheostomy. PROCEDURE: Scar revision by vertical to horizontal plasty. INDICATIONS: This is a 35-year-old that has been undergoing a tracheotomy to manage airway following radiation to laryngeal cancer. It has been about a year now and the scar has been quite hypertrophic and is a vertical scar. It is thickened and it is cosmetically unacceptable. She was brought to the operating room for elective scar revision. PROCEDURE: Satisfactory IV sedation was given. 1% Xylocaine with 1:100,000 epinephrine was injected in the skin around the scar and anterior neck. An elliptical incision was created around the vertical scar. Flaps were undermined above the strap muscles on either side to allow adequate mobilization of the skin. Her head was slightly flexed on her neck and it was possible to draw the once vertical incision into a horizontal incision without much skin tension. 4-0 Vicryl vertical mattress sutures were used to close the subcutaneous tissue and platysma muscle. The skin was then using 4-0 nylon mattress sutures. Steri-Strips were applied. She tolerated the procedure well and was sent to the recovery room in satisfactory condition. She will be seen back in the office in one week for suture removal.
== END 2020-07-01 12:05 | disposition home or self-care (01) ==
LOC: M SDC 08:02
PROVIDERS: ATTEND Specialist
DX: L91.0 Hypertrophic scar (principal); Z79.899 Other long term (current) drug therapy; K21.9 Gastro-esophageal reflux disease without esophagitis; Z85.21 Personal history of malignant neoplasm of larynx; Z92.3 Personal history of irradiation; F17.218 Nicotine dependence, cigarettes, with other nicotine-induced disorders; Z91.013 Allergy to seafood
CPT/HCPCS: 13131; 88302; J2250; J2405; J3010

== ENCOUNTER 2020-07-14 12:06 | Inpatient (IN) | payer OTHER ==
[~2020-07-14] VITALS: Ht 165.1 cm; Wt 83.1 kg
[~2020-07-14 12:06] MED LIST changes: -LR 1,000 ML IV ONE
[2020-07-14 14:09] VITALS: BP 108/73
[2020-07-14] MEDS ORDERED: fentaNYL 50 MCG/HR PATCH TOP SCH (15:00)
[2020-07-14] MEDS ORDERED: FENTANYL REMOVAL DOCUMENTATION MISC XX SCH (15:00)
[2020-07-14] MEDS ORDERED: diphenhydrAMINE 50MG/ML VIAL (J1200) IV ONE (15:00)
--- NOTE | 2020-07-14 16:50 | HPEPDOC ---
General Date of Admission Jul 14, 2020 Date of Service: Jul 14, 2020 Chief Complaint The patient is a 35-year-old female admitted with a reason for visit of Cellulitis. Source: Patient History of Present Illness Ms. Whitney is a 35 year old female with laryngeal cancer s/p surgery here with cellulitis of surgical site. About 5 days ago, she had neck surgery for scar removal. Afterwards, she would wash with water and sometimes soap. She dressed with Bactroban and gauze. Denies any new soaps or lotions. Denies problems with Bactroban or gauze in the past. After the surgery, she started to have warmth, erythema, and pruritus around the surgical area. It progressively got worse, and she went to the ER at [place]. While at [place] she got CT of the surgical area which was consistent with cellulitis. Her WBC was 15.1. She's given ceftriaxone for the infection. She is also given Solu-Medrol for the pruritus. She was transferred to [facility] since she had her surgery with ENT here. When I saw her in her room, the area around her neck was erythematous and warm. She told was tender when I touched. She tells me that the pain is a burning pain. Rates it as a 4 out of 10. Otherwise denied any fever or chills, lightheadedness or dizziness, chest pain, dyspnea, abdominal pain, diarrhea, or dysuria. Home Medications Scheduled fentaNYL (fentaNYL) 50 Mcg Patch.td72, 50 MCG TD Q3D, (Reported) Scheduled PRN Oxycodone Hcl (Oxycodone HCl) 30 Mg Tablet, 30 MG PO PRN PRN for PAIN, (Reported) Allergies Coded Allergies: iodine (Verified Allergy, Severe, Anaphylaxis, 07/01/20) shellfish derived (Verified Allergy, Severe, anaphlaxis, 07/01/20) Past Medical History Medical History 1. Back pain 2. Bronchitis 3. Chronic headache 4. Laryngitis 5. Laryngeal cancer 6. Nephrolithiasis Surgical History 1. Lithotripsy and stone removal 2. Tonsillectomy 3. Tracheostomy and reversal 4. Tubal ligation Family History Denies any past medical history in her parents. Denies any heart disease, lung disease, or thyroid problems in her parents Social History * Smoker: current smoker (she tells that she smoked for 6 years, half a pack per day) Alcohol: Denies Drugs: denies A-FIB/CHADSVASC A-FIB History Current/History of A-Fib/PAF?: No Review of Systems Constitutional: Denies: Chills, Fever Eyes: Reports: Other (pruritus) ENT: Reports: Dysphagia (sometimes she feels that food gets stuck sometimes. Unchanged from prior); Denies: Sore Throat Skin: Reports: Rash (around her neck) Pulmonary: Denies: Dyspnea, Cough Cardiovascular: Denies: Chest Pain, Lt Headedness Gastrointestinal: Denies: Nausea, Abdominal Pain, Diarrhea, Constipation Genitourinary: Denies: Dysuria Hematologic: Denies: Bruising Endocrine: Denies: Polydipsia, Polyphagia, Polyuria Musculoskeletal: Reports: Neck Pain Psych: Denies: Anxiety, Depression, Thoughts of Self Harm, Thoughts of Harming Other Physical Examination General Exam: Positive: Alert, Cooperative, Moderate Distress Eye Exam: Positive: EOMI, Other Eye Symptoms (orbits looks sunken); Negative: Sclera icteric ENT Exam: Positive: Atraumatic Neck Exam: Positive: Supple Chest Exam: Positive: Diminished Heart Exam: Positive: Tachycardic, Regular Rhythm Abdomen Exam: Positive: Normal bowel sounds, Soft; Negative: Tenderness Extremity Exam: Negative: Edema Neuro Exam: Positive: Cranial Nerves 3-12 NL Psych Exam: Positive: Mental status NL, Mood NL Vital Signs Temp 98.8, HR 114, RR 18, BP 108/73, SpO2 92% at room air Assessment/Plan Ms. Whitney is a 35 year old female with laryngeal cancer s/p surgery here with cellulitis of surgical site. We will reach out to her ENT doctor tomorrow. Otherwise she'll be on broad-spectrum antibiotics with vancomycin and Zosyn. Overnight she'll be kept NPO in case if she needs surgery tomorrow Plan / VTE VTE Prophylaxis Ordered?: Yes Plan Plan 1. Cellulitis of surgical site Warm and erythematous Describes a burning sensation Also pruritic Blood cultures 2 and wound culture was taken at [place]. Although she had ceftriaxone, will repeat another set here. Broad-spectrum antibiotics with vancomycin and Zosyn We will reach out to her ENT specialist 2. Laryngeal cancer She is following with ENT. She had tracheostomy and removal. Recently had surgery to remove the scar 3. Chronic pain Follows with the pain clinic Fentanyl patch 50 g every 3 days Oxycodone 8 tablets a day (120 mg a day). She has been weaning off of her oxycodone. She was on 9 tablet a day, now 8. At home she was taking 2 tablets (15 mg tablets) every 4-6 hours with maximum daily dose of 8 tablets. 4. Tobacco abuse Continues to smoke Nicotine patch ordered 5. DVT prophylaxis SCDs and teds KEREN SNYDER DO Jul 14, 2020 14:51
[2020-07-14] MEDS: NS 1,000 ML IV SCH ×2 (17:54→20:32)
[2020-07-14] MEDS: oxyCODONE 5MG TAB PO PRN ×2 (17:57→23:56)
[2020-07-14] MEDS ORDERED: BENZ-18 PO (19:29)
[2020-07-14] MEDS ORDERED: IBUP200C25 PO (19:29)
[2020-07-14] MEDS ORDERED: ONDA-83 PO (19:29)
[2020-07-14] MEDS ORDERED: DIAZ5TAB PO (19:29)
[2020-07-14] MEDS ORDERED: BENA25CA4 PO (19:32)
[2020-07-14] MEDS ORDERED: diphenhydrAMINE 50MG/ML VIAL (J1200) IM ONE (20:00)
[2020-07-14 20:24] LABS: BLOOD UREA NITROGEN 9 MG/DL (7-18); CALCIUM LEVEL 8.8 MG/DL (8.5-10.1); CARBON DIOXIDE LEVEL 29 MEQ/L (21-32); CHLORIDE LEVEL 104 MEQ/L (98-107); CREATININE FOR GFR 0.79 MG/DL (0.55-1.30); GLOMERULAR FILTRATION RATE > 60.0 (>60); GLUCOSE, FASTING 151 MG/DL (70-100); POTASSIUM SERUM 4.5 MEQ/L (3.5-5.1); SODIUM LEVEL 140 MEQ/L (136-145)
[2020-07-14] MEDS: PIPERACILLIN/TAZOBACTAM SOD 3.375 GM in D5W MINI-BAG PLUS 50 ML IV SCH (20:31)
[2020-07-14 22:00] VITALS: BP 127/83
[2020-07-14] MEDS ORDERED: VANCOMYCIN HCL 1,000 MG, VIAL MATE ADAPTER 1 EACH in D5W 250 ML IV ONE ×2 (22:00→23:00)
[2020-07-15] MEDS: PIPERACILLIN/TAZOBACTAM SOD 3.375 GM in D5W MINI-BAG PLUS 50 ML IV SCH ×2 (02:49→08:40)
[2020-07-15] MEDS: oxyCODONE 5MG TAB PO PRN (05:44)
[2020-07-15 06:00] VITALS: BP 112/60
[2020-07-15 06:26] LABS: BASO % 0.1 % (0.0-1.0); EOS % 0.1 % (0.0-3.0); HEMATOCRIT 37.5 % (36.0-47.0); HEMOGLOBIN 11.3 g/dl (12.0-15.5); LYMPH # 1.3 10^3/uL (1.5-5.0); MEAN CORPUSCULAR HEMOGLOBIN 26.8 pg (27.0-33.0); MEAN CORPUSCULAR HGB CONC 30.1 g/dl (32.0-36.5); MEAN CORPUSCULAR VOLUME 89.1 fl (80.0-96.0); MONO % 8.8 % (0.0-5.0); NEUTROPHILS # 9.2 10^3/uL (1.5-8.5); NEUTROPHILS % 79.4 % (36.0-66.0); PLATELET COUNT, AUTOMATED 348 10^3/uL (150-450); RED BLOOD COUNT 4.21 10^6/uL (4.00-5.40); WHITE BLOOD COUNT 11.6 10^3/uL (4.0-10.0)
[2020-07-15 06:54] LABS: ALBUMIN 2.9 GM/DL (3.2-5.2); ALT/SGPT 14 U/L (12-78); BILIRUBIN,TOTAL 0.3 MG/DL (0.2-1.0); BLOOD UREA NITROGEN 12 MG/DL (7-18); CALCIUM LEVEL 9.2 MG/DL (8.5-10.1); CARBON DIOXIDE LEVEL 31 MEQ/L (21-32); CHLORIDE LEVEL 106 MEQ/L (98-107); CREATININE FOR GFR 0.58 MG/DL (0.55-1.30); GLOMERULAR FILTRATION RATE > 60.0 (>60); GLUCOSE, FASTING 131 MG/DL (70-100); POTASSIUM SERUM 4.1 MEQ/L (3.5-5.1); SODIUM LEVEL 140 MEQ/L (136-145); TOTAL PROTEIN 5.7 GM/DL (6.4-8.2)
[2020-07-15] MEDS ORDERED: diphenhydrAMINE 50MG/ML VIAL (J1200) IV ONE (08:30)
[2020-07-15] MEDS ORDERED: VANCOMYCIN HCL 1,000 MG, VIAL MATE ADAPTER 1 EACH in D5W 250 ML IV SCH (09:00)
[2020-07-15] MEDS ORDERED: NICOTINE 21MG/24HR 1 EA TRANSDERMAL TD SCH (09:00)
[2020-07-15] MEDS ORDERED: BACT800T5 PO (21:48)
--- NOTE | 2020-07-15 21:56 | DS.PDOC ---
Discharge Summary General Date of Admission Jul 14, 2020 at 14:28 Date of Discharge Jul 15, 2020 Attending Physician: KEREN SNYDER DO Specialist/Cons[facility]ants [facility], Dr. Rainey Discharge Summary PROCEDURES PERFORMED DURING STAY: None ADMITTING DIAGNOSES: 1. Cellulitis of surgical site 2. History of laryngeal cancer status post surgery 3. Chronic pain 4. Tobacco abuse DISCHARGE DIAGNOSES: 1. Cellulitis of surgical site 2. History of laryngeal cancer status post surgery 3. Chronic pain 4. Tobacco abuse COMPLICATIONS/CHIEF COMPLAINT: Cellulitis. HISTORY OF PRESENT ILLNESS: Ms. Whitney is a 35 year old female with laryngeal cancer s/p surgery here with cellulitis of surgical site. About 5 days ago, she had neck surgery for scar removal. Afterwards, she would wash with water and sometimes soap. She dressed with Bactroban and gauze. Denies any new soaps or lotions. Denies problems with Bactroban or gauze in the past. After the surgery, she started to have warmth, erythema, and pruritus around the surgical area. It progressively got worse, and she went to the ER at [place]. While at [place] she got CT of the surgical area which was consistent with cellulitis. Her WBC was 15.1. She's given ceftriaxone for the infection. She is also given Solu- Medrol for the pruritus. She was transferred to [facility] since she had her surgery with ENT here. When I saw her in her room, the area around her neck was erythematous and warm. She told was tender when I touched. She tells me that the pain is a burning pain. Rates it as a 4 out of 10. Otherwise denied any fever or chills, lightheadedness or dizziness, chest pain, dyspnea, abdominal pain, diarrhea, or dysuria. HOSPITAL COURSE: The following day, ENT, Dr. Rainey, saw the patient. Since the neck has been irradiated, it won't look like normal skin. He felt that it may be an allergic reaction. He felt that the patient could go home with oral antibiotics. This morning the patient denied any fever or chills, lightheadedness or dizziness, chest pain, abdominal pain, diarrhea or dysuria. The rash still felt itchy but she was anxious to go home. She was subsequently discharged later in the day. DISCHARGE MEDICATIONS: Please see below. ALLERGIES: Please see below. PHYSICAL EXAMINATION ON DISCHARGE: VITAL SIGNS: Please see below. GENERAL: Comfortable, in no apparent distress. HEENT: Head normocephalic/atraumatic, EOMI, sclera clear. NECK: Rash on anterior neck RESPIRATORY: Lungs clear to auscultation bilaterally, no rales, wheeze or rhonchi. CARDIOVASCULAR: Regular rate and rhythm. ABDOMEN: Soft, nontender, no guarding or rebound tenderness. Normal bowel sounds. MUSCLE SKELETAL: Muscle strength 5/5 in all extremities. NEUROLOGICAL: CN 312 grossly intact, no focal deficits noted. PSYCHOLOGICAL: Normal mood and affect LABORATORY DATA: Please see below. PROGNOSIS: Stable ACTIVITY: As tolerated. DIET: As tolerated DISCHARGE PLAN: Home DISPOSITION: Home, Self-Care. DISCHARGE INSTRUCTIONS: 1. Follow-up with Dr. Rainey in 1 week 2. Follow-up with her PCP within 5 days. ITEMS TO FOLLOWUP ON ON OUTPATIENT: 1. Wound and blood culture results from [place] DISCHARGE CONDITION: Stable Total times on discharge planning, discharge summary, and medication reconciliation: 35 minutes Vital Signs/I&Os Vital Signs Date Time Temp Pulse Resp B/P (MAP) Pulse Ox O2 Delivery O2 Flow Rate FiO2 07/15/20 06:14 18 95 Room Air 07/15/20 06:00 97.7 108 112/60 (77) I&O- Last 24 Hours up to 6 AM 07/15/20 06:00 Intake Total 1720 ml Output Total 675 ml Balance 1045 ml Laboratory Data Labs 24H Laboratory Tests 2 07/15/20 05:23: Methicillin-Resist S.aureus DNA PCR NOT DETECTED 07/15/20 06:00: Immature Granulocyte % (Auto) 0.6, Neutrophils (%) (Auto) 79.4H, Lymphocytes (%) (Auto) 11.0L, Monocytes (%) (Auto) 8.8H, Eosinophils (%) (Auto) 0.1, Basophils (%) (Auto) 0.1, Neutrophils # (Auto) 9.2H, Lymphocytes # (Auto) 1.3L, Monocytes # (Auto) 1.0H, Eosinophils # (Auto) 0.0, Basophils # (Auto) 0.0, Nucleated Red Blood Cells % (auto) 0.0, Anion Gap 3L, Glomerular Filtration Rate > 60.0, Calci um Level 9.2, Total Bilirubin 0.3, Aspartate Amino Transf (AST/SGOT) 6L, Alanine Aminotransferase (ALT/SGPT) 14, Alkaline Phosphatase 71, Total Protein 5.7L, Albumin 2.9L, Albumin/Globulin Ratio 1.0L CBC/BMP Laboratory Tests 07/15/20 06:00 Microbiology Microbiology 07/14/20 Blood Culture - Preliminary, Resulted No growth after 24 hours . All specim... 07/14/20 Blood Culture - Preliminary, Resulted No growth after 24 hours . All specim... 07/14/20 Gram Stain - Final, Resulted 07/14/20 Wound Culture, Resulted Pending Discharge Medications Scheduled Diazepam (Diazepam) 5 Mg Tablet, 5 MG PO QHS, (Reported) Diphenhydramine HCl (Benadryl) 25 Mg Capsule, 25 MG PO DAILY, (Reported) Sulfamethoxazole/Trimethoprim (Bactrim Ds Tablet) 1 Each Tablet, 1 TAB PO BID fentaNYL (fentaNYL) 50 Mcg Patch.td72, 50 MCG TD Q3D, (Reported) Scheduled PRN Benzonatate (Benzonatate) 100 Mg Capsule, 100 MG PO DAILY PRN for COUGH, (Reported) Ibuprofen (Ibuprofen) 200 Mg Capsule, 400 MG PO Q6H PRN for PAIN, (Reported) Ondansetron HCl (Ondansetron HCl) 4 Mg Tablet, 4 MG PO Q6H PRN for NAUSEA OR VOMITING, (Reported) Oxycodone Hcl (Oxycodone HCl) 30 Mg Tablet, 30 MG PO Q4H PRN for PAIN, (Reported) may take 2 tablets q4h prn Allergies Coded Allergies: iodine (Verified Allergy, Severe, Anaphylaxis, 07/01/20) shellfish derived (Verified Allergy, Severe, anaphlaxis, 07/01/20) clindamycin (Verified Allergy, Intermediate, swelling /rash, 07/14/20) KEREN SNYDER DO Jul 15, 2020 21:52
[2020-07-16] MEDS ORDERED: INFLUENZA QUADRIVALENT PF VACCINE 0.5ML SYRINGE IM ONE (09:00)
== END 2020-07-15 10:18 | disposition home or self-care (01) | DRG 383 ==
LOC: M MSPAV 14:28
PROVIDERS: ADMIT Internal Medicine; ATTEND Internal Medicine
DX: L03.221 Cellulitis of neck (principal); F17.200 Nicotine dependence, unspecified, uncomplicated; Z85.21 Personal history of malignant neoplasm of larynx; Z79.899 Other long term (current) drug therapy; Z91.013 Allergy to seafood; Z88.8 Allergy status to other drugs, medicaments and biological substances; G89.29 Other chronic pain

== ENCOUNTER → 2020-12-03 | Outpatient (REF) | payer OTHER ==
[~2020-12-03] MED LIST changes: +BACT800T5 PO; +BENA25CA4 PO; +BENZ-18 PO; +DIAZ5TAB PO; +ONDA-83 PO
== END ==
LOC: M LAB REF 08:19
PROVIDERS: ATTEND Specialist
DX: L85.9 Epidermal thickening, unspecified (principal)

== ENCOUNTER → 2021-04-09 | Outpatient (CLI) | payer OTHER ==
--- NOTE | 2021-04-09 18:08 | REPVR ---
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 TECHNIQUE: Imaging protocol: Computed tomography images of the neck without contrast. Radiation optimization: All CT scans at this facility use at least one of these dose optimization techniques: automated exposure control; mA and/or kV adjustment per patient size (includes targeted exams where dose is matched to clinical indication); or iterative reconstruction. COMPARISON: 1. PT PET/CT Skull/mid thigh 10/25/2019 10:[address] Neck without contrast 06/16/2019 12:21:[address] NECK W/O CONTRAST - OUTSIDE PRIOR 09/19/2018 6:08:00 PM FINDINGS: Nasopharynx: Unremarkable. Oral cavity: No discrete tongue mass is identified. Some limitations visualizing the right oral tongue due to beam hardening artifact from dental work. Sensitivity of this exam for detection of a mass is limited due to noncontrast technique. Foci of air at the junction of the tongue and sublingual space, coronal image 18 of series 2, potentially related to recent biopsy. Please correlate clinically. To better evaluate the tongue, MRI or PET-CT could be obtained for further evaluation. Oropharynx: Unremarkable. No significant tonsillar enlargement. Hypopharynx: Unremarkable. Larynx: Normal epiglottis. With specific attention to the true vocal folds, no discrete mass identified. Retropharyngeal space: Unremarkable. Submandibular/Parotid glands: Normal. Glands are normal in size. Thyroid: Normal. No enlarged or calcified nodules. Lymph nodes: A left submandibular lymph node is larger compared to the most recent CT neck soft tissue exam and since the PET-CT. This lymph node is seen on image 32 of series 201 measuring 1.4 x 0.7 cm. Previously the lymph node measured approximately 1.1 x 0.4 cm. Small scattered lymph nodes elsewhere are similar to the prior study. Trachea: Stable. Slight narrowing of the trachea at the level of a prior tracheostomy in keeping with scarring. Lungs: Unremarkable as visualized. Bones/joints: Unremarkable. No acute fracture. Soft tissues: Unremarkable. IMPRESSION: 1. Limited noncontrast study. Isodense lesions will not be seen. 2. No discrete tongue base mass identified. To better evaluate the tongue, MRI or PET-CT could be obtained for further evaluation. Possible post biopsy changes of the left tongue, please correlate clinically. 3. Interval enlargement of a left submandibular lymph node. This lymph node is nonspecific. Given the clinical history of a tongue neoplasm, a simba metastasis is a consideration. Electronically signed by: Jennifer Pillai On 04/09/2021 18:07:45 PM
== END ==
LOC: M RAD 16:34
PROVIDERS: ATTEND Specialist
DX: K11.20 Sialoadenitis, unspecified (principal)

== ENCOUNTER → 2022-05-12 | Outpatient (CLI) | payer OTHER ==
[~2022-05-12] MED LIST changes: +FENT1PAT25 TD; -FENT50DI5 TD; -IBUP200T45 PO; +IBUP200T46 PO
== END ==
LOC: M RAD 13:12
PROVIDERS: ATTEND Internal Medicine Pulmonary Disease
DX: R06.02 Shortness of breath (principal); R91.8 Other nonspecific abnormal finding of lung field

== ENCOUNTER → 2022-09-29 | Outpatient (CLI) | payer OTHER ==
[~2022-09-29] MED LIST changes: +HYDR-3713 PO; +LIDO2SOL17 PO; +OMEP40CA5 PO
== END ==
LOC: M LABSMTC 10:49
PROVIDERS: ATTEND Anesthesiology
DX: Z01.818 Encounter for other preprocedural examination (principal)

== ENCOUNTER 2022-10-01 10:20 | Day surgery (SDC) | payer OTHER ==
[~2022-10-01] VITALS: Ht 165.1 cm; Wt 85.3 kg
[2022-10-01] MEDS ORDERED: LR 1,000 ML IV SCH ×3 (10:45→14:15)
[2022-10-01] MEDS ORDERED: CETACAINE SPRAY 5GM As Ordered ONE (12:11)
[2022-10-01] MEDS ORDERED: propofoL 200 MG/20 ML VIAL As Ordered ONE (12:12)
[2022-10-01] MEDS ORDERED: LIDOCAINE 2% 100MG/5ML SDV (FOR ANES.) As Ordered ONE (12:13)
[2022-10-01] MEDS ORDERED: MIDAZOLAM INJ 2MG/2ML VIAL As Ordered ONE (12:13)
[2022-10-01] MEDS ORDERED: ROCURONIUM BROMIDE 50MG/5ML VIAL As Ordered ONE (12:13)
[2022-10-01] MEDS ORDERED: fentaNYL 100 MCG/2 ML INJECTION As Ordered ONE (12:13)
[2022-10-01] MEDS ORDERED: ACETAMINOPHEN 1000MG 100ML IV BAG As Ordered ONE (12:20)
[2022-10-01] MEDS ORDERED: SUCCINYLCHOLINE 100MG/5ML SYRINGE As Ordered ONE (12:45)
[2022-10-01] MEDS ORDERED: ESMOLOL INJ 100MG/10ML VIAL As Ordered ONE (12:47)
[2022-10-01] MEDS ORDERED: SUGAMMADEX SODIUM 500 MG/5 ML VIAL (BRIDION) As Ordered ONE (12:49)
[2022-10-01] MEDS ORDERED: HYDROMORPHONE HCL 0.5 MG/ 0.5 ML SYRINGE IV PRN (13:20)
[2022-10-01] MEDS ORDERED: fentaNYL 100 MCG/2 ML INJECTION IV PRN (13:20)
[2022-10-01] MEDS ORDERED: oxyCODONE 5MG TAB PO PRN (13:20)
[2022-10-01] MEDS ORDERED: ONDANSETRON 4MG 2ML VIAL IV PRN (13:20)
[2022-10-01 14:20] VITALS: BP 156/78
== END 2022-10-01 14:35 | disposition home or self-care (01) ==
LOC: M SDC 10:20
PROVIDERS: ATTEND Otolaryngology
DX: J31.2 Chronic pharyngitis (principal); C32.9 Malignant neoplasm of larynx, unspecified; Z92.3 Personal history of irradiation; K21.9 Gastro-esophageal reflux disease without esophagitis; Z87.891 Personal history of nicotine dependence; Z79.899 Other long term (current) drug therapy
CPT/HCPCS: 31525; J0330; J1100

== ENCOUNTER → 2022-10-19 | Outpatient (CLI) | payer OTHER ==
[~2022-10-19] MED LIST changes: +LIDO15SO4 PO; -LIDO2SOL17 PO
== END ==
LOC: M PLARAD 15:06
PROVIDERS: ATTEND Otolaryngology
DX: C32.0 Malignant neoplasm of glottis (principal); R16.0 Hepatomegaly, not elsewhere classified; N20.0 Calculus of kidney; I70.0 Atherosclerosis of aorta; R59.0 Localized enlarged lymph nodes
CPT/HCPCS: 78815; A9552

== ENCOUNTER → 2023-09-21 | Outpatient (CLI) | payer OTHER ==
[~2023-09-21] VITALS: Ht 165.1 cm; Wt 94.4 kg
[~2023-09-21] MED LIST changes: +DESI25TA59 PO; +HYDR-4517 PO; +LIDO15SO PO; -LIDO15SO4 PO; +NAPR-849 PO; +SENN-186 PO
[2023-09-21 14:34] VITALS: BP 159/101; O2SAT 98
== END ==
LOC: M PAL 14:25
PROVIDERS: ATTEND Nurse Practitioner Adult Health
DX: G89.3 Neoplasm related pain (acute) (chronic) (principal); G89.29 Other chronic pain; C32.9 Malignant neoplasm of larynx, unspecified; H92.09 Otalgia, unspecified ear; M54.2 Cervicalgia; R63.0 Anorexia; R07.0 Pain in throat; R53.83 Other fatigue; Z51.5 Encounter for palliative care; Z79.1 Long term (current) use of non-steroidal anti-inflammatories (NSAID); Z79.899 Other long term (current) drug therapy; Z87.442 Personal history of urinary calculi; Z88.8 Allergy status to other drugs, medicaments and biological substances; Z91.048 Other nonmedicinal substance allergy status; Z91.013 Allergy to seafood; Z92.3 Personal history of irradiation; Z98.51 Tubal ligation status; Z98.890 Other specified postprocedural states

== ENCOUNTER → 2023-10-07 | Day surgery (SDC) | payer OTHER ==
[~2023-10-07] VITALS: Ht 165.1 cm; Wt 91.6 kg
[~2023-10-07] MED LIST changes: +GLYCOPYRROLATE INJ 0.2 MG/ML 2 ML VIAL As Ordered ONE; +LIDOCAINE 2% 100MG/5ML SDV (FOR ANES.) As Ordered ONE; +NS 1,000 ML IV ONE; +propofoL 200 MG/20 ML VIAL As Ordered ONE
[2023-10-07 11:02] VITALS: TEMP 98.2
[2023-10-07 11:19] VITALS: BP 120/86; O2SAT 99
== END | disposition home or self-care (01) ==
LOC: M OPP 09:14
PROVIDERS: ATTEND Internal Medicine Gastroenterology
DX: K64.4 Residual hemorrhoidal skin tags (principal); K64.8 Other hemorrhoids; K52.9 Noninfective gastroenteritis and colitis, unspecified; Z53.8 Procedure and treatment not carried out for other reasons; K22.719 Barrett's esophagus with dysplasia, unspecified; K31.89 Other diseases of stomach and duodenum; F17.200 Nicotine dependence, unspecified, uncomplicated; Z79.1 Long term (current) use of non-steroidal anti-inflammatories (NSAID); Z79.891 Long term (current) use of opiate analgesic; Z79.899 Other long term (current) drug therapy

== ENCOUNTER → 2023-10-21 | Outpatient (CLI) | payer OTHER ==
[~2023-10-21] MED LIST changes: -GLYCOPYRROLATE INJ 0.2 MG/ML 2 ML VIAL As Ordered ONE; +HYDR2TAB2 PO; -LIDOCAINE 2% 100MG/5ML SDV (FOR ANES.) As Ordered ONE; +MORP15TA2 PO; -NS 1,000 ML IV ONE; -propofoL 200 MG/20 ML VIAL As Ordered ONE
== END ==
LOC: M PAL 13:50
PROVIDERS: ATTEND Nurse Practitioner Adult Health
DX: G89.3 Neoplasm related pain (acute) (chronic) (principal); G89.29 Other chronic pain; C32.9 Malignant neoplasm of larynx, unspecified; H92.09 Otalgia, unspecified ear; M54.2 Cervicalgia; R63.0 Anorexia; R07.0 Pain in throat; R53.83 Other fatigue; Z51.5 Encounter for palliative care; Z79.1 Long term (current) use of non-steroidal anti-inflammatories (NSAID); Z79.891 Long term (current) use of opiate analgesic; Z79.899 Other long term (current) drug therapy; Z87.442 Personal history of urinary calculi; Z87.891 Personal history of nicotine dependence; Z88.1 Allergy status to other antibiotic agents; Z91.013 Allergy to seafood; Z91.048 Other nonmedicinal substance allergy status; Z92.3 Personal history of irradiation; Z98.51 Tubal ligation status; Z98.890 Other specified postprocedural states

== ENCOUNTER → 2023-10-27 | Outpatient (CLI) | payer OTHER ==
[~2023-10-27] VITALS: Ht 162.6 cm; Wt 92.4 kg
[~2023-10-27] MED LIST changes: +ACET-683 PO; +DILA8TAB5 PO; +MAGICMW PO; +NARC1SPR NARES; +PREG25CA PO
[2023-10-27 10:34] VITALS: BP 166/98; O2SAT 100
== END ==
LOC: M PAL 10:12
PROVIDERS: ATTEND Nurse Practitioner Adult Health
DX: G89.3 Neoplasm related pain (acute) (chronic) (principal); G89.29 Other chronic pain; R07.0 Pain in throat; H92.09 Otalgia, unspecified ear; M54.2 Cervicalgia; R13.10 Dysphagia, unspecified; C32.9 Malignant neoplasm of larynx, unspecified; Z51.5 Encounter for palliative care; Z79.1 Long term (current) use of non-steroidal anti-inflammatories (NSAID); Z79.891 Long term (current) use of opiate analgesic; Z79.899 Other long term (current) drug therapy; Z87.442 Personal history of urinary calculi; Z87.891 Personal history of nicotine dependence; Z88.1 Allergy status to other antibiotic agents; Z91.013 Allergy to seafood; Z91.048 Other nonmedicinal substance allergy status; Z92.3 Personal history of irradiation; Z98.51 Tubal ligation status; Z98.890 Other specified postprocedural states

== ENCOUNTER → 2023-11-30 | Outpatient (CLI) | payer OTHER ==
[~2023-11-30] VITALS: Ht 165.1 cm; Wt 89.1 kg
[~2023-11-30] MED LIST changes: +DILA4TAB13 PO; -LIDO15SO PO; +LIDO15SO8 PO; +PREG50CA PO
[2023-11-30 09:33] VITALS: BP 137/87; O2SAT 98
== END ==
LOC: M PAL 09:25
PROVIDERS: ATTEND Nurse Practitioner Adult Health
DX: G89.3 Neoplasm related pain (acute) (chronic) (principal); G89.29 Other chronic pain; R07.0 Pain in throat; H92.09 Otalgia, unspecified ear; M54.2 Cervicalgia; C32.9 Malignant neoplasm of larynx, unspecified; Z51.5 Encounter for palliative care; Z79.1 Long term (current) use of non-steroidal anti-inflammatories (NSAID); Z79.891 Long term (current) use of opiate analgesic; Z79.899 Other long term (current) drug therapy; Z87.442 Personal history of urinary calculi; Z87.891 Personal history of nicotine dependence; Z88.1 Allergy status to other antibiotic agents; Z91.013 Allergy to seafood; Z91.048 Other nonmedicinal substance allergy status; Z92.3 Personal history of irradiation; Z93.0 Tracheostomy status; Z98.890 Other specified postprocedural states; Z98.51 Tubal ligation status

== ENCOUNTER → 2024-03-01 | Outpatient (CLI) | payer OTHER ==
[~2024-03-01] MED LIST changes: +HYDR4TAB PO; +ONDA-282 PO; +ONDA-284 PO; -ONDA8TAB8 PO; +OXYC-1 PO
== END ==
LOC: M PAL 07:54
PROVIDERS: ATTEND Nurse Practitioner Family
DX: G89.3 Neoplasm related pain (acute) (chronic) (principal); C32.9 Malignant neoplasm of larynx, unspecified; Z51.5 Encounter for palliative care; Z79.891 Long term (current) use of opiate analgesic; Z79.899 Other long term (current) drug therapy; Z87.442 Personal history of urinary calculi; Z91.048 Other nonmedicinal substance allergy status; Z91.013 Allergy to seafood; Z87.891 Personal history of nicotine dependence; Z88.1 Allergy status to other antibiotic agents; Z92.3 Personal history of irradiation; Z93.0 Tracheostomy status; Z98.51 Tubal ligation status; Z98.890 Other specified postprocedural states

== ENCOUNTER → 2024-03-23 | Outpatient (CLI) | payer OTHER ==
[~2024-03-23] VITALS: Ht 165.1 cm; Wt 80.1 kg
[2024-03-23 09:35] VITALS: BP 157/95; O2SAT 99
== END ==
LOC: M PAL 09:25
PROVIDERS: ATTEND Nurse Practitioner Adult Health
DX: G89.3 Neoplasm related pain (acute) (chronic) (principal); C32.9 Malignant neoplasm of larynx, unspecified; F11.10 Opioid abuse, uncomplicated; Z51.5 Encounter for palliative care; Z79.891 Long term (current) use of opiate analgesic; Z79.899 Other long term (current) drug therapy; Z87.442 Personal history of urinary calculi; Z91.048 Other nonmedicinal substance allergy status; Z91.013 Allergy to seafood; Z87.891 Personal history of nicotine dependence; Z88.1 Allergy status to other antibiotic agents; Z92.3 Personal history of irradiation; Z93.0 Tracheostomy status; Z98.51 Tubal ligation status; Z98.890 Other specified postprocedural states

== ENCOUNTER → 2024-03-23 | Outpatient (CLI) | payer OTHER | LOC: M ONCR 11:06 | PROVIDERS: ATTEND General Practice | DX: Z08 Encounter for follow-up examination after completed treatment for malignant neoplasm (principal); M54.2 Cervicalgia; G89.29 Other chronic pain; Z85.21 Personal history of malignant neoplasm of larynx; Z87.891 Personal history of nicotine dependence | CPT/HCPCS: 31575; G0463 ==

== ENCOUNTER → 2024-03-23 | Outpatient (CLI) | payer OTHER | LOC: M OUTALCOH 12:45 | PROVIDERS: ATTEND Psychiatry & Neurology Psychiatry | DX: F11.20 Opioid dependence, uncomplicated (principal); F17.200 Nicotine dependence, unspecified, uncomplicated ==

== ENCOUNTER → 2024-04-12 | Outpatient (RCR) | payer OTHER | LOC: M OUTALCOH 15:45 | PROVIDERS: ATTEND Psychiatry & Neurology Psychiatry | DX: F11.20 Opioid dependence, uncomplicated (principal); F17.200 Nicotine dependence, unspecified, uncomplicated ==

== ENCOUNTER → 2024-05-02 | Outpatient (CLI) | payer OTHER ==
[~2024-05-02] VITALS: Ht 165.1 cm; Wt 83.1 kg
[~2024-05-02] MED LIST changes: +BUPR1SUB4 SL; +CLAR10CA3 PO; +MUCI600T31 PO; +SUBO2MIS SL; +SUBO8MIS SL
[2024-05-02 13:06] VITALS: BP 147/90; O2SAT 100
== END ==
LOC: M PAL 12:44
PROVIDERS: ATTEND Nurse Practitioner Adult Health
DX: G89.3 Neoplasm related pain (acute) (chronic) (principal); Z85.21 Personal history of malignant neoplasm of larynx; F11.10 Opioid abuse, uncomplicated; K59.00 Constipation, unspecified; Z51.5 Encounter for palliative care; Z79.891 Long term (current) use of opiate analgesic; Z79.899 Other long term (current) drug therapy; Z87.442 Personal history of urinary calculi; Z91.048 Other nonmedicinal substance allergy status; Z91.013 Allergy to seafood; Z87.891 Personal history of nicotine dependence; Z88.1 Allergy status to other antibiotic agents; Z92.3 Personal history of irradiation; Z93.0 Tracheostomy status; Z98.51 Tubal ligation status; Z98.890 Other specified postprocedural states

== ENCOUNTER → 2024-05-03 | Outpatient (CLI) | payer OTHER | LOC: M PAL 11:43 | PROVIDERS: ATTEND Family Medicine | DX: Z01.89 Encounter for other specified special examinations (principal) ==

== ENCOUNTER 2024-05-09 16:00 | Outpatient (RCR) | payer MEDICAID ==
[~2024-05-09 16:00] MED LIST changes: -SUBO8MIS SL
[2024-05-12] MEDS ORDERED: SUBO8MIS SL ×2 (09:42→09:45)
== END 2024-05-13 ==
LOC: M OUTALCOH 16:00
PROVIDERS: ATTEND Psychiatry & Neurology Psychiatry
DX: F11.20 Opioid dependence, uncomplicated (principal); F17.200 Nicotine dependence, unspecified, uncomplicated